=== PATIENT | female | born 1985 | race Caucasian/White ===

== ENCOUNTER 2024-06-23 12:41 | Inpatient (IN) | payer OTHER, SELFPAY ==
[2024-06-23 12:46] VITALS: BP 105/40; PULSE 55; RESP 20; TEMP 36.1; O2SAT 97; BMI 24.9
--- NOTE | 2024-06-23 12:49 | ED_ITS ---
HPI - Psych General Chief Complaint: General Medical Stated Complaint: requesting higher level care Time Seen by Provider: 06/23/24 17:28 Source: patient Mode of arrival: ambulatory Limitations: no limitations History of Present Illness ED Provider: DR. Maki HPI Narrative: 38-year-old female history of crack use and alcohol abuse came in from [facility] requesting to to help for rehab placement. Patient stated where she getting her detox is easy access to cocaine inside the facility. Related Data Allergies Allergy/AdvReac Type Severity Reaction Status Date / Time No Known Allergies Allergy Verified 06/23/24 12:47 Review of Systems 2 Review of Systems: All other systems are reviewed and are negative Constitutional: Reports as per HPI and Reports no additional constitutional complaints Eyes: Reports as per HPI and Reports no additional eye complaints Reports system reviewed and no additional complaints, except as documented Cardiovascular: Reports as per HPI and Reports no additional cardiovascular complaints Respiratory: Reports as per HPI and Reports no additional respiratory complaints Gastrointestinal: Reports as per HPI and Reports no additional gastrointestinal complaints Genitourinary: Reports no additional female genitourinary complaints Musculoskeletal: Reports no additional musculoskeletal complaints Skin/Breast: Reports system reviewed and no additional complaints, except as docu Psychiatric: Reports no additional psychiatric complaints Endocrine: Reports no additional endocrine complaints Hematologic/Lymphatic: Reports no additional hematologic/lymphatic complaints Allergic/Immunologic: Reports no additional allergic/immunologic complaints Reports system reviewed and no additional complaints, except as documented and Reports Abnormal speech present [facility] Social History Social History Advance Directives: No Advance Directives Information Provided: No Physical Exam 2 Vital Signs: Vital Signs: Last Vital Signs Temp 98.4 F 06/23/24 17:09 Pulse 52 06/23/24 18:12 Resp 18 06/23/24 18:12 BP 92/50 L 06/23/24 18:12 Pulse Ox 98 06/23/24 18:12 O2 Del Method Room Air 06/23/24 18:12 BMI result Body Mass Index 24.9 Vital signs have been reviewed and appear to be correct. Blood pressure lower than normal patient is a traumatic, no blurry vision, no headache, no dizziness.. Heart rate normal. Respiratory rate normal. Temperature normal. Oxygen saturation normal. Appearance: Alert. Oriented X3. No acute distress. Head: Normal external exam. Normocephalic. Atraumatic. No Scott signs noted. No raccoon eyes noted Eyes: PERRLA. EOMI. Conjunctiva and sclera normal. Eyelids normal. ENT: TM's Normal. Pharynx normal. Uvula midline. Moist mucous membranes. No trismus noted. No drooling noted. No muffled voice noted. Neck: Normal inspection. Neck supple. FROM. No adenopathy. Thyroid Normal. No meningeal signs. No neck mass noted. CVS: Normal heart rate and rhythm. Heart sound normal. No murmurs noted. Pulses normal throughout. Respiratory: No respiratory distress. Painless inspiration. Breath sounds normal. No wheezes/rales/rhonchi noted. Chest nontender. No accessory muscle usage noted or decreased air movement noted. Abdomen: Soft and nontender. Bowel sounds normal in all 4 quadrants. No distention noted. No organomegaly noted. No visible injury noted. Back: No CVA tenderness. Full range of motion noted. Skin: Skin warm and dry. Normal skin color. Normal skin turgor. No rashes/lesions/lacerations noted. Extremities: No lower extremity edema. Extremities exhibit normal range of motion. Extremities nontender. Neuro: Oriented X 3. Cranial nerve exam: II-XII are grossly intact No motor deficit. No sensory deficit. Reflexes normal. Patient Orientation: Person, Place, Time and Situation, okay hygiene and grooming. Fair eye contact, attentive, no tics or tremors. Level of Consciousness: Awake, Appropriate and Alert Patient Behavior: Appropriate, Guarded, Cooperative and Anxious Mood Description: Constricted, Blunted and Apprehensive Affect Description: Constricted, Blunted and Apprehensive Patient Cognition Impaired: No Ability to Follow Directions: Excellent Speech Pattern: Clear, Appropriate and Spontaneous Speech, nonpressured, spontaneous with regular rate and rhythm, normal volume and prosody. No dysarthria. Memory Description: Intact, Immediate Intact and Short Term Intact Hallucinations: None Delusions: Not Present Thought Process: Intact Thought Content: positive for Intact, positive for Logical, denies Suicidal Ideation and denies Homicidal Ideation. Depressive Symptoms: Not present. Judgement and Insight: Limited but adequate. Course Course Course Narrative: This is an RME: Additional HPI, ROS, PE not included below will be deferred to primary provider. RME assessment and note performed by: Jannet Cast PA-C This is a 24-ifjw-meh-female, with a history of opioid use disorder and alcohol use disorder who presents to the ER from [facility] requesting CSS placement. Patient states she has not happy with the care that she is receiving at [facility] because she is often times surrounded by cocaine which is triggering for her. She is currently on methadone, last dose this morning through [facility]. She is from the [facility]. Denies any SI or HI. No AH/VH. Reports last drink was in april. Last used cocaine last week, laced with fenantyl last week. Plan: Labs, UA, Addiction med consult. Reevaluation(s) Reevaluation #1: 38-year-old female history of substance abuse at [facility] for detox, patient is concern because the easy access of obtaining street drugs inside the facility and would like help for another detox program. Time: 17:00 Reevaluation #2: Extra medicine input is appreciated and recommended to keep the patient overnight for placement tomorrow. Time: 20:29 Medical Decision Making Differential Diagnosis Differential Diagnoses: The differential diagnosis associated with the presentation includes (Substance abuse, medical clearance, SI, HI.) Admission/Observation Consideration of admission/observation: Escalation of care including admission/observation considered Lab Data MDM Lab Attestation statement: I reviewed the patient's lab results. 06/23/24 13:20 06/23/24 13:20 Labs: Lab Results 06/23/24 Range/Units 13:20 WBC 5.3 (4.8-10.8) X10*3/uL RBC 4.68 (4.20-5.50) X10*6/uL Hgb 13.3 (12.0-16.0) g/dl Hct 40.3 (37.0-47.0) % MCV 86.1 (80.0-98.0) fL MCH 28.4 (27.0-33.0) pg MCHC 33.0 (31.0-35.0) g/dl RDW 12.3 (11.0-16.0) % Plt Count 319 (160-400) X10*3/uL MPV 10.0 (9.4-12.3) fL Immature Gran % (Auto) 0.4 (0.0-0.4) % Neut % (Auto) 47.8 (45-73) % Lymph % (Auto) 40.8 H (20-40) % [place] % (Auto) 7.6 (2-11) % Eos % (Auto) 2.3 (0-4) % Baso % (Auto) 1.1 (0-2) % Lymph # (Auto) 2.1 (1.2-4.9) X10*3/uL [place] # (Auto) 0.4 (0.1-1.2) X10*3/uL Eos # (Auto) 0.1 (0.0-0.4) X10*3/uL Baso # (Auto) 0.1 (0.0-0.2) X10*3/uL Abs Immat Gran (auto) 0.02 (0.00-0.03) X10*3/uL Absolute Neuts (auto) 2.5 (2.0-8.3) x10*3/uL Absolute Nucleated RBC 0.000 (0.0-0.012) X10*3/uL Nucleated RBC % (auto) 0.0 (0.0-0.2) /100WBC Sodium 137 (135-145) mmol/L Potassium 4.9 (3.3-5.1) mmol/L Chloride 101 (96-108) mmol/L Carbon Dioxide 28 (22-29) mmol/L Anion Gap 13 (12-20) BUN 10 (9-16) mg/dL Creatinine 0.89 (0.5-1.4) mg/dL Estim Creat Clear Calc 80.0 Estimated GFR > 60 Random Glucose 94 (60-115) mg/dL Calcium 9.4 (8.4-10.2) mg/dL Total Bilirubin 1.1 H (0.0-1.0) mg/dL Direct Bilirubin 0.3 (0.0-0.5) mg/dL AST 71 H (5-31) U/L ALT 103 H (0-31) U/L Alkaline Phosphatase 94 (39-117) U/L Total Protein 7.7 (6.5-8.0) g/dL Albumin 4.3 (3.5-5.0) g/dL Beta HCG, Quant < 2 mIU/mL Urine Opiates Screen Not Detected (Not Detect) Ur Buprenorphine Scrn Not Detected (Not Detect) ng/mL Ur Oxycodone Screen Not Detected (Not Detect) ng/mL Urine Methadone Screen Positive H (Not Detect) ng/mL Urine Fentanyl Screen Not Detected (Not Detect) Ur Barbiturates Screen Not Detected (Not Detect) Ur Phencyclidine Scrn Not Detected (Not Detect) Ur Amphetamines Screen Not Detected (Not Detect) U Benzodiazepines Scrn POSITIVE H (Not Detect) Urine Cocaine Screen POSITIVE H (Not Detect) U Marijuana (THC) Screen Not Detected (Not Detect) Ethyl Alcohol < 10 mg/dL Discharge Plan Discharge Clinical Impression: Substance abuse Patient Disposition: Still a Patient Print Language: Namibian
[2024-06-23 13:26] LABS: MANUAL DIFF FLAG NO
[2024-06-23 13:28] LABS: Basophils Absolute Auto 0.1 X10*3/uL (0.0-0.2); Basophils Percent Auto 1.1 % (0-2); Eosinophils Absolute Auto 0.1 X10*3/uL (0.0-0.4); Eosinophils Percent Auto 2.3 % (0-4); Hematocrit 40.3 % (37.0-47.0); Hemoglobin 13.3 g/dl (12.0-16.0); Imm Gran Abs Auto 0.02 X10*3/uL (0.00-0.03); Imm Gran Pct Auto 0.4 % (0.0-0.4); Lymphocytes Absolute Auto 2.1 X10*3/uL (1.2-4.9); Lymphocytes Percent Auto 40.8 % (20-40); Mean Corpuscular Hemoglobin 28.4 pg (27.0-33.0); Mean Corpuscular Volume 86.1 fL (80.0-98.0); Monocytes Absolute Auto 0.4 X10*3/uL (0.1-1.2); Monocytes Percent Auto 7.6 % (2-11); Neutrophils Absolute Auto 2.5 x10*3/uL (2.0-8.3); Neutrophils Percent Auto 47.8 % (45-73); Platelet Count 319 X10*3/uL (160-400); Red Blood Count 4.68 X10*6/uL (4.20-5.50); Red Cell Distribution Width 12.3 % (11.0-16.0); White Blood Count 5.3 X10*3/uL (4.8-10.8)
[2024-06-23 13:41] LABS: Amphetamine Screen Urine Not Detected (Not Detect); Barbiturates, Urine Not Detected (Not Detect); Benzodiazepines Screen Urine POSITIVE (Not Detect); Buprenorphine Scr Not Detected (Not Detect); Cannabinoid Screen Urine Not Detected (Not Detect); Cocaine Screen Urine POSITIVE (Not Detect); Fentanyl, urine Not Detected (Not Detect); Methadone Screen, Urine Positive (Not Detect); Opiate Screen Urine Not Detected (Not Detect); Oxycodone Screen Urine Not Detected (Not Detect); Phencyclidine Screen Urine Not Detected (Not Detect)
[2024-06-23 13:52] LABS: Ethanol < 10 mg/dL
[2024-06-23 14:00] LABS: Alanine Aminotransferase 103 U/L (0-31); Albumin Level 4.3 g/dL (3.5-5.0); Alkaline Phosphatase 94 U/L (39-117); Anion Gap 13 (12-20); Aspartate Amino Transferase 71 U/L (5-31); Bilirubin Direct 0.3 mg/dL (0.0-0.5); Bilirubin Total 1.1 mg/dL (0.0-1.0); Blood Urea Nitrogen 10 mg/dL (9-16); Calcium 9.4 mg/dL (8.4-10.2); Carbon Dioxide 28 mmol/L (22-29); Chloride 101 mmol/L (96-108); Estimated Glomerular Filt Rate > 60; Glucose Random 94 mg/dL (60-115); Potassium 4.9 mmol/L (3.3-5.1); Sodium 137 mmol/L (135-145); Total Protein 7.7 g/dL (6.5-8.0)
[2024-06-23 14:02] LABS: HCG Quantitative < 2 mIU/mL
[2024-06-23 17:09] VITALS: BP 88/51; PULSE 57; RESP 16; TEMP 36.9; O2SAT 100
--- NOTE | 2024-06-23 17:19 | PC.NURSE ---
pt denies SI/HI. They are not here for crisis. They would like help in placement to a CSS
--- NOTE | 2024-06-23 18:11 | PC.NURSE ---
after discussion with charge nurse and security pt's belongings were not secured at this time due to the pt not being here for crisis, not SI or HI, no section
[2024-06-23 18:12] VITALS: BP 92/50; PULSE 52; RESP 18; O2SAT 98
--- NOTE | 2024-06-23 18:34 | MHC.CM.ED ---
Pt is not a CM consult. Appropriate for CARE team and recovery support services. Provider aware. CARE team aware
--- NOTE | 2024-06-23 20:20 | MHC.CARE ---
CARE TEAM met with patient in RP01. She is not known to [facility]. She reported a history of alcohol use and disclosed she was admitted to [facility] on 05/22/24. She discussed since being at [facility], she has been smoking cocaine. She reported she left [facility] with hopes to be readmitted to [facility]. CARE TEAM called [phone] ext [phone] and message was left. Patient disclosed she was administered 75mg of Methadone prior to leaving [facility]. She was observed dosing in and out of sleep. ?She does not appear to be an immediate risk to self or others. Patient denied suicidal and homicidal ideation, plan, or intent. Patient would most benefit from meeting with Recovery Team.
--- NOTE | 2024-06-23 21:04 | PC.NURSE ---
spoke to CARE team who decided it would be best for pt to stay overnight - at that time pt changed over with security, belongings secured, and brought to POD
--- NOTE | 2024-06-23 22:04 | PC.NURSE ---
t/w completed med count once it was discovered controlled meds were present, according to list from xim[facility], shes left with 13 alprazolam and now 9 are present. considering patients BP, i dont foresee comfortably administering medications to client tonight. will continue to monitor VS.
--- NOTE | 2024-06-23 23:42 | PC.NURSE ---
patients belongings now in behavior pod closet, too many for other location
[2024-06-24] VITALS (10 sets, daily range): BP systolic 80–108; BP diastolic 45–62; PULSE 50–83; RESP 16–18; TEMP 36.6–37.2; O2SAT 94–98
--- NOTE | 2024-06-24 03:22 | PC.NURSE ---
client asked about medications, t/w informed client id be interested in a more normal BP and encouraged fluids, also let client know that methadone verfiication would be after 0600, and administration should be after 0800. patient made statements about not missing benzos, however patient has no evidence of withdrawal presently (snacking and has been resting).
--- NOTE | 2024-06-24 06:36 | HE.PHANOTE ---
Re MEthadone Received confirmation form from nursing. Patient receives 75mg from [facility]. Last dose was 06/23/24.
--- NOTE | 2024-06-24 09:40 | PC.NURSE ---
pt walked up to the nurses station to receive her methadone, this RN decided to re-check the pt's bp because it has been running low, bp was low again, decided to perform orthostatic vs and pt was positive with some dizziness upon standing but resolved quickly, held the methadone for now and reached out to the provider, verbal order from the provider to give the methadone after an ekg was performed and to push oral fluids which the pt has been drinking fluids and will continue to do so
--- NOTE | 2024-06-24 09:48 | ECG_ITS ---
Test Reason : BRADYCARDIA Blood Pressure : / mmHG Vent. Rate : 052 BPM Atrial Rate : 052 BPM P-R Int : 172 ms QRS Dur : 080 ms QT Int : 480 ms P-R-T Axes : 034 072 070 degrees QTc Int : 446 ms Poor data quality Sinus bradycardia Otherwise normal ECG No previous ECGs available Referred By: Romel Ornelas Electronically Signed By:QUINTEN BIGGS MD
[2024-06-24] MEDS: methADONE HCl 20 MG/2 ML ORAL.CONC 75 MG PO (09:52)
--- NOTE | 2024-06-24 10:10 | PC.NURSE ---
recover at bedside speaking with the patient
--- NOTE | 2024-06-24 10:31 | PHA.MEDREC ---
Pharmacy Consult ? Medication Reconciliation Pharmacy has reviewed the medication reconciliation done by nursing staff Also called [facility] on [facility] in [place] [phone] and spoke to Estrella to confirm list. Changed buppropion SR to XL 150mg after speaking to [facility].
--- NOTE | 2024-06-24 10:38 | PC.NURSE ---
will be holding the wellbutrin and Xanax for now do to the pt's low bp
--- NOTE | 2024-06-24 10:47 | MHC.RECOVRN ---
Met with pt in BH3 to follow up after request for CSS placement. Pt awake, alert, easily engages in conversation. Pt is not interested in ATS after cocaine use. Pt is interested in returning to [facility]. Pt aware she is unable to board in the ED waiting for CSS but a referral will be placed. Referral sent to [email or web address] and voicemail left with staff requesting information on bed availability and likelihood of patient's acceptance. Will continue to follow.
[2024-06-24] MEDS: ALPRAZolam 0.5 MG TABLET 1 MG PO ×2 (11:34→20:41)
[2024-06-24] MEDS: Docusate Sodium 100 MG CAPSULE PO ×2 (11:34→20:41)
[2024-06-24] MEDS: buPROPion HCl XL 150 MG TAB.ER.24H PO (11:34)
--- NOTE | 2024-06-24 11:44 | MHC.RECOVRN ---
Attempted to reach [facility] regarding CSS availability, again no answer and left a message.
--- NOTE | 2024-06-24 12:50 | PC.NURSE ---
recovery speaking to the patient again
--- NOTE | 2024-06-24 13:23 | PC.NURSE ---
pt is currently asleep respirations even and unlabored,
--- NOTE | 2024-06-24 13:35 | PC.NURSE ---
while this rn was on brake pt expressed si statements to recovery team
--- NOTE | 2024-06-24 13:56 | MHC.CARE ---
Pt seen by CARE team and refereed to hospital recovery team for detox.
--- NOTE | 2024-06-24 14:24 | MHC.RECOVRN ---
Met with pt to follow up regarding CSS referral and lack of response from [facility]. Educated pt that she is unable to stay in the ED to wait for CSS bed. Pt then reported SI with a plan to overdose. Pt reports she has 2 children, 7 years old and 6 months old, and has been having increased depression since DCF involvement and not being able to have her children. Reports 7 year old is with their father and 6 month old are with her aunt. Pt denies other questions/concerns for t/w. Discussed with pod RN, CARE Team, and ED provider. Plan for CARE Team consult.
--- NOTE | 2024-06-24 17:17 | PC.NURSE ---
report given to gemma sumner at M3
--- NOTE | 2024-06-24 19:13 | PC.ADMIT ---
Keena is a 38 y/o uruguayan speaking female who was admitted to M3 at 1735 from [facility] on a CV for treatment of Bipolar d/o with SI. Pt was at the [facility] program and says she started using crack because of other pts in the program. Pt wants to step down to a CSS for help with recovery. Pt is A&O x4 , she is calm and cooperative. Pts mood is depressed with a congruent affect. Pt denies AH/VH/SI/HI. Pts thought process linear. Pt?ideation, plan or intent to harm self or others. She reports her appetite is good. She reports 4-5 hours of sleep which is disturbed by racing thoughts. Pt has a history of ETOH abuse, reporting 9 months of sobriety and then drank for two weeks. Pts last drink was 2 months ago. Pt reports restraining daily crack use? over the past month at the [facility] Pt has no acute medical concerns or complaints. Her goal for the admission is to get into a CSS from this hospitalization. Pt placed on 15 minute safety checks.
[2024-06-24] MEDS: traZODone HCL 50 MG TABLET PO (20:41)
[2024-06-24] MEDS: hydrOXYzine HCL 25 MG TABLET PO (20:41)
[2024-06-25 07:41] VITALS: BP 110/58; PULSE 77; RESP 16; TEMP 37; O2SAT 96
[2024-06-25] MEDS: methADONE HCl 20 MG/2 ML ORAL.CONC 75 MG PO (07:46)
[2024-06-25] MEDS: ALPRAZolam 0.5 MG TABLET 1 MG PO ×2 (08:27→16:48)
[2024-06-25] MEDS: Docusate Sodium 100 MG CAPSULE PO ×2 (08:27→21:00)
[2024-06-25] MEDS: buPROPion HCl XL 150 MG TAB.ER.24H PO (08:28)
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
[2024-06-25 11:04] VITALS: BP 110/58; PULSE 77; RESP 18; TEMP 37; O2SAT 96
[2024-06-25 11:05] VITALS: BMI 29.2
[2024-06-25 12:36] VITALS: BP 109/67
[2024-06-25] MEDS: cloNIDine HCL 0.1 MG TABLET PO ×2 (12:36→20:59)
[2024-06-25] MEDS: Ibuprofen 600 MG TABLET PO ×2 (12:36→21:00)
[2024-06-25] MEDS: OXcarbazepine 150 MG TABLET PO ×2 (14:40→21:00)
[2024-06-25] MEDS: Sertraline HCL 25 MG TABLET PO (14:40)
[2024-06-25 20:00] VITALS: BP 105/73; PULSE 68; RESP 16; TEMP 36.8; O2SAT 95
[2024-06-25] MEDS: traZODone HCL 50 MG TABLET PO (20:59)
[2024-06-25] MEDS: hydrOXYzine HCL 25 MG TABLET PO (21:00)
[2024-06-26 08:16] VITALS: BP 115/69; PULSE 64; RESP 18; TEMP 36.9; O2SAT 98
[2024-06-26] MEDS: methADONE HCl 20 MG/2 ML ORAL.CONC 75 MG PO (08:19)
[2024-06-26] MEDS: ALPRAZolam 0.5 MG TABLET 1 MG PO ×2 (08:51→15:26)
[2024-06-26] MEDS: OXcarbazepine 150 MG TABLET PO (08:51)
[2024-06-26] MEDS: Sertraline HCL 25 MG TABLET PO (08:51)
[2024-06-26] MEDS: buPROPion HCl XL 150 MG TAB.ER.24H PO (08:51)
[2024-06-26] MEDS: Docusate Sodium 100 MG CAPSULE PO ×2 (08:52→20:10)
--- NOTE | 2024-06-26 09:44 | PC.NURSE ---
Keena declined flu shot on 06/26/24
[2024-06-26 10:40] VITALS: BP 125/69
[2024-06-26] MEDS: cloNIDine HCL 0.1 MG TABLET PO ×2 (10:42→20:09)
--- NOTE | 2024-06-26 12:36 | PM.EVENT ---
Event Note Date of Service: 06/26/24 Event Note: Patient is a 38-year-old female admitted to M3 psych unit with hospitalist consult for area sternal erythema. Patient reports she noticed 2 days ago she had a white head in the area and popped it. Area since then has grown erythematous and occasionally oozing a small amount of white pus. Has a remote history of IVDU, sober for the past 8 years. Physical exam reveals warm and erythematous area right sternum, see picture below. No fluctuance or induration noted. Will treat with doxycycline 100 mg b.i.d. x5 days. Time Spent With Patient Time: Total time managing care of this patient today ____ minutes.
[2024-06-26] MEDS: chlorproMAZINE HCl 25 MG TABLET 50 MG PO ×2 (13:29→18:17)
[2024-06-26] MEDS: Doxycycline Monohydrate 100 MG CAPSULE PO ×2 (13:47→20:10)
[2024-06-26] MEDS: OXcarbazepine 300 MG TABLET PO ×2 (15:26→20:10)
--- NOTE | 2024-06-26 19:14 | P.PNPSI_ITS ---
Subjective Subjective Date of Service: 06/26/24 Reason For Visit: SI Interim History: woke up a lot overnight. c/o anxiety, asking about klonopin; per script review, pt has not had any klonopin script since october of 2023. agreeable to increase trileptal to 300 TID for now. also asking about adding gabapentin, which she reports has been helpful for her in the past. also willing to increase zoloft to 50 mg on saturday, potentially. c/o anger as well, agreeable to try thorazine PRN agitation. Mental Status Exam Mental Status Exam Narrative: adequately dressed and groomed. cooperative. no PMA/PMR. speech nml rate, amount, loudness, tone, latency. thoughts linear and logical without delusions or paranoia. affect constricted, normo-intense, non-labile. mood Anxious. passive SI. no HI/AVH. Diagnostics Vital Signs (24Hr): Vital Signs - 24 hr 06/25/24 20:00 06/26/24 08:16 06/26/24 10:40 Temperature 98.3 F 98.5 F Pulse Rate 68 64 Respiratory Rate 16 18 Blood Pressure 105/73 115/69 125/69 Pulse Oximetry 95 98 Oxygen Delivery Method Room Air BMI result Body Mass Index 29.2 Labs 06/23/24 13:20 06/23/24 13:20 Medications Medications Current Medications Acetaminophen (Acetaminophen 325 Mg Tablet) 650 mg PO Q6H PRN PRN Reason: Headache/Pain Mild Scale (1-3) Al Hydroxide/Mg Hydroxide (Magnesium Hydrox/Alum Hydrox 30 Ml Oral.Susp) 30 ml PO Q6H PRN PRN Reason: Heartburn/Nausea Alprazolam (Alprazolam 0.5 Mg Tablet) 1 mg PO BID PRN PRN Reason: panic attack Last Admin: 06/26/24 15:26 Dose: 1 mg Bupropion HCl (Bupropion Hcl Xl 150 Mg Tab.Er.24h) 150 mg PO DAILY JULIO CÉSAR Last Admin: 06/26/24 08:51 Dose: 150 mg Chlorpromazine HCl (Chlorpromazine Hcl 25 Mg Tablet) 50 mg PO QID PRN PRN Reason: severe anger Last Admin: 06/26/24 18:17 Dose: 50 mg Clonidine HCl (Clonidine Hcl 0.1 Mg Tablet) 0.1 mg PO TID PRN; Protocol PRN Reason: Anxiety Last Admin: 06/26/24 10:42 Dose: 0.1 mg Docusate Sodium (Docusate Sodium 100 Mg Capsule) 100 mg PO BID COUNTS [facility]CLUDE 234 BEDS AT THE [facility] Last Admin: 06/26/24 08:52 Dose: 100 mg Doxycycline Monohydrate (Doxycycline Monohydrate 100 Mg Capsule) 100 mg PO Q12H COUNTS INCLUDE 234 BEDS AT THE [facility] Stop: 07/01/24 20:59 Hydroxyzine HCl (Hydroxyzine Hcl 25 Mg Tablet) 25 mg PO Q6H PRN PRN Reason: Anxiety Last Admin: 06/25/24 21:00 Dose: 25 mg Ibuprofen (Ibuprofen 600 Mg Tablet) 600 mg PO TID PRN PRN Reason: Breakthrough Pain, Mild Last Admin: 06/25/24 21:00 Dose: 600 mg Magnesium Hydroxide (Milk Of Magnesia 30 Ml Oral.Susp) 30 ml PO DAILY PRN PRN Reason: Constipation Methadone HCl (Methadone Hcl 20 Mg/2 Ml Oral.Conc) 75 mg PO DAILY COUNTS INCLUDE 234 BEDS AT THE [facility] Last Admin: 06/26/24 08:19 Dose: 75 mg Nicotine Polacrilex (Nicotine Polacrilex 2 Mg Gum) 4 mg BUCCAL Q3H PRN PRN Reason: Nicotine Cravings Oxcarbazepine (Oxcarbazepine 300 Mg Tablet) 300 mg PO TID COUNTS INCLUDE 234 BEDS AT THE [facility] Last Admin: 06/26/24 15:26 Dose: 300 mg Sertraline HCl (Sertraline Hcl 25 Mg Tablet) 25 mg PO DAILY COUNTS INCLUDE 234 BEDS AT THE [facility] Last Admin: 06/26/24 08:51 Dose: 25 mg Trazodone HCl (Trazodone Hcl 100 Mg Tablet) 100 mg PO BEDTIME COUNTS INCLUDE 234 BEDS AT THE [facility] Allergies Allergies Allergy/AdvReac Type Severity Reaction Status Date / Time No Known Allergies Allergy Verified 06/23/24 12:47 Assessment & Plan Assessment & Plan (1) Opioid use disorder, severe, on maintenance therapy: Status: Acute Code(s): F11.20 - Opioid dependence, uncomplicated (2) Cocaine use disorder: Status: Acute Code(s): F14.10 - Cocaine abuse, uncomplicated (3) Alcohol use disorder: Status: Acute Code(s): F10.90 - Alcohol use, unspecified, uncomplicated (4) Unspecified mood [affective] disorder: Status: Acute Code(s): F39 - Unspecified mood [affective] disorder Plan 06/25: restart trileptal 150 TID mood mood stabilization. start zoloft 25 for anxiety/panic/depression. 06/26: c/o anxiety and irritability. agreeable to increase trileptal to 300 TID. increase zoloft to 50 mg daily on saturday. no evidence for any recent klonopin script; do not prescribe. add thorazine PRN anger. T/C adding scheduled gabapentin over w/e if pt tolerates trileptal dose increase and continues to c/o anxiety. Reason for continued inpatient stay Substantial Risk for: harm to self, inability to function and rapid decompensation Time Spent With Patient Time: Total time managing care of this patient today __25__ minutes.
[2024-06-26 20:00] VITALS: BP 143/62; PULSE 67; RESP 18; TEMP 36.8; O2SAT 99
[2024-06-26] MEDS: hydrOXYzine HCL 25 MG TABLET PO (20:10)
[2024-06-26] MEDS: Ibuprofen 600 MG TABLET PO (20:10)
[2024-06-26] MEDS: traZODone HCL 100 MG TABLET PO (20:10)
[2024-06-27 07:50] VITALS: BP 107/53; PULSE 61; RESP 16; TEMP 36.8; O2SAT 95
[2024-06-27] MEDS: methADONE HCl 20 MG/2 ML ORAL.CONC 75 MG PO (08:02)
[2024-06-27] MEDS: chlorproMAZINE HCl 25 MG TABLET 50 MG PO (09:31)
[2024-06-27] MEDS: Acetaminophen 325 MG TABLET 650 MG PO (09:31)
[2024-06-27] MEDS: OXcarbazepine 300 MG TABLET PO ×3 (09:32→21:20)
[2024-06-27] MEDS: Docusate Sodium 100 MG CAPSULE PO ×2 (09:32→21:21)
[2024-06-27] MEDS: ALPRAZolam 0.5 MG TABLET 1 MG PO (09:32)
[2024-06-27] MEDS: Doxycycline Monohydrate 100 MG CAPSULE PO ×2 (09:32→21:20)
[2024-06-27] MEDS: Sertraline HCL 25 MG TABLET PO (09:32)
[2024-06-27] MEDS: buPROPion HCl XL 150 MG TAB.ER.24H PO (09:32)
--- NOTE | 2024-06-27 10:16 | HO.PSYCHPN ---
Subjective Subjective Date of Service: 06/27/24 Reason For Visit: SI Interim History: overall reports feeling irritable, anxious, poor sleep. Depressed. Thoughts of that. No active SI. No psychosis. Overall we discussed utilizing gabapentin for anxiety and also increasing Thorazine as needed dosing for agitation for/anger Medication Compliance: Yes Side effects from medications: No Attending Groups: Yes Review of Systems Acute medical concerns: No Review of Systems Review of Systems unremarkable Mental Status Exam Mental Status Exam Narrative: adequately dressed and groomed. cooperative. no PMA/PMR. speech nml rate, amount, loudness, tone, latency. thoughts linear and logical without delusions or paranoia. mood Anxious . affect constricted, normo-intense, non-labile. passive SI. no HI/AVH. Diagnostics Vital Signs (24Hr): Vital Signs - 24 hr 06/26/24 10:40 06/26/24 20:00 06/27/24 07:50 Temperature 98.3 F 98.2 F Pulse Rate 67 61 Respiratory Rate 18 16 Blood Pressure 125/69 143/62 H 107/53 L Pulse Oximetry 99 95 Oxygen Delivery Method Room Air Room Air BMI result Body Mass Index 29.2 Labs 06/23/24 13:20 06/23/24 13:20 Medications Medications Current Medications Acetaminophen (Acetaminophen 325 Mg Tablet) 650 mg PO Q6H PRN PRN Reason: Headache/Pain Mild Scale (1-3) Last Admin: 06/27/24 09:31 Dose: 650 mg Al Hydroxide/Mg Hydroxide (Magnesium Hydrox/Alum Hydrox 30 Ml Oral.Susp) 30 ml PO Q6H PRN PRN Reason: Heartburn/Nausea Alprazolam (Alprazolam 0.5 Mg Tablet) 1 mg PO BID PRN PRN Reason: panic attack Last Admin: 06/27/24 09:32 Dose: 1 mg Bupropion HCl (Bupropion Hcl Xl 150 Mg Tab.Er.24h) 150 mg PO DAILY JULIO CÉSAR Last Admin: 06/27/24 09:32 Dose: 150 mg Chlorpromazine HCl (Chlorpromazine Hcl 25 Mg Tablet) 50 mg PO QID PRN PRN Reason: severe anger Last Admin: 06/27/24 09:31 Dose: 50 mg Clonidine HCl (Clonidine Hcl 0.1 Mg Tablet) 0.1 mg PO TID PRN; Protocol PRN Reason: Anxiety Last Admin: 06/26/24 20:09 Dose: 0.1 mg Docusate Sodium (Docusate Sodium 100 Mg Capsule) 100 mg PO BID [facility] Last Admin: 06/27/24 09:32 Dose: 100 mg Doxycycline Monohydrate (Doxycycline Monohydrate 100 Mg Capsule) 100 mg PO Q12H [facility] Stop: 07/01/24 20:59 Last Admin: 06/27/24 09:32 Dose: 100 mg Hydroxyzine HCl (Hydroxyzine Hcl 25 Mg Tablet) 25 mg PO Q6H PRN PRN Reason: Anxiety Last Admin: 06/26/24 20:10 Dose: 25 mg Ibuprofen (Ibuprofen 600 Mg Tablet) 600 mg PO TID PRN PRN Reason: Breakthrough Pain, Mild Last Admin: 06/26/24 20:10 Dose: 600 mg Magnesium Hydroxide (Milk Of Magnesia 30 Ml Oral.Susp) 30 ml PO DAILY PRN PRN Reason: Constipation Methadone HCl (Methadone Hcl 20 Mg/2 Ml Oral.Conc) 75 mg PO DAILY [facility] Last Admin: 06/27/24 08:02 Dose: 75 mg Nicotine Polacrilex (Nicotine Polacrilex 2 Mg Gum) 4 mg BUCCAL Q3H PRN PRN Reason: Nicotine Cravings Oxcarbazepine (Oxcarbazepine 300 Mg Tablet) 300 mg PO TID [facility] Last Admin: 06/27/24 09:32 Dose: 300 mg Sertraline HCl (Sertraline Hcl 25 Mg Tablet) 25 mg PO DAILY [facility] Last Admin: 06/27/24 09:32 Dose: 25 mg Trazodone HCl (Trazodone Hcl 100 Mg Tablet) 100 mg PO BEDTIME [facility] Last Admin: 06/26/24 20:10 Dose: 100 mg Allergies Allergies Allergy/AdvReac Type Severity Reaction Status Date / Time No Known Allergies Allergy Verified 06/23/24 12:47 Assessment & Plan Assessment & Plan (1) Opioid use disorder, severe, on maintenance therapy: Status: Acute Code(s): F11.20 - Opioid dependence, uncomplicated (2) Cocaine use disorder: Status: Acute Code(s): F14.10 - Cocaine abuse, uncomplicated (3) Alcohol use disorder: Status: Acute Code(s): F10.90 - Alcohol use, unspecified, uncomplicated (4) Unspecified mood [affective] disorder: Status: Acute Code(s): F39 - Unspecified mood [affective] disorder Plan 06/25: restart trileptal 150 TID mood mood stabilization. start zoloft 25 for anxiety/panic/depression. 06/26: c/o anxiety and irritability. agreeable to increase trileptal to 300 TID. increase zoloft to 50 mg daily on saturday. no evidence for any recent klonopin script; do not prescribe. add thorazine PRN anger. T/C adding scheduled gabapentin over w/e if pt tolerates trileptal dose increase and continues to c/o anxiety. 06/27/2024: Add gabapentin 300 mg 3 times per day. Increase Thorazine as needed dosing to 100 mg for agitation/anger Reason for continued inpatient stay Substantial Risk for: harm to self and rapid decompensation Time Spent With Patient Time: Total time managing care of this patient today ____ minutes.
[2024-06-27 12:58] VITALS: BP 127/61
[2024-06-27] MEDS: cloNIDine HCL 0.1 MG TABLET PO ×2 (12:58→17:39)
[2024-06-27] MEDS: chlorproMAZINE HCl 100 MG TABLET PO ×2 (12:58→17:39)
[2024-06-27] MEDS: Gabapentin 300 MG CAPSULE PO ×2 (15:52→21:19)
[2024-06-27] MEDS: Nicotine Polacrilex 2 MG GUM 4 MG BUCCAL (16:12)
[2024-06-27 17:35] VITALS: BP 111/60; PULSE 85; RESP 16
[2024-06-27 20:00] VITALS: BP 124/69; PULSE 68; RESP 16; TEMP 36.3; O2SAT 100
[2024-06-27] MEDS: Ibuprofen 600 MG TABLET PO (21:20)
[2024-06-27] MEDS: traZODone HCL 100 MG TABLET PO (21:21)
[2024-06-27] MEDS: hydrOXYzine HCL 25 MG TABLET PO (21:21)
[2024-06-28 07:35] VITALS: BP 105/59; PULSE 67; RESP 16; TEMP 36.9; O2SAT 95
[2024-06-28] MEDS: methADONE HCl 20 MG/2 ML ORAL.CONC 75 MG PO (08:11)
[2024-06-28] MEDS: Doxycycline Monohydrate 100 MG CAPSULE PO ×2 (09:05→22:43)
[2024-06-28] MEDS: buPROPion HCl XL 150 MG TAB.ER.24H PO (09:06)
[2024-06-28] MEDS: OXcarbazepine 300 MG TABLET PO ×3 (09:06→22:43)
[2024-06-28] MEDS: Docusate Sodium 100 MG CAPSULE PO ×2 (09:06→22:43)
[2024-06-28] MEDS: Sertraline HCL 25 MG TABLET PO (09:06)
[2024-06-28] MEDS: Gabapentin 300 MG CAPSULE PO ×3 (09:06→22:43)
[2024-06-28] MEDS: ALPRAZolam 0.5 MG TABLET 1 MG PO ×2 (09:10→21:34)
[2024-06-28] MEDS: hydrOXYzine HCL 25 MG TABLET PO ×2 (09:10→22:42)
--- NOTE | 2024-06-28 10:25 | HO.PSYCHPN ---
Subjective Subjective Date of Service: 06/28/24 Reason For Visit: SI Medical Problems Affecting Mental Status: No Interim History: Slept well. Nodding off at times. When awake, reports feeling irritable, anxious and depressed. No active SI. No psychosis. Wanted to try zyprexa instead of Thorazine for agitation. Later wanted to change back to Thorazine (lowered to 75mg due to sedation at 100mg and report of no benefit at 50mg). Medication Compliance: Yes Side effects from medications: No Attending Groups: Intermittent Review of Systems Acute medical concerns: No Review of Systems Review of Systems unremarkable Mental Status Exam Mental Status Exam Narrative: adequately dressed and groomed. cooperative. no PMA/PMR. speech nml rate, amount, loudness, tone, latency. thoughts linear and logical without delusions or paranoia. mood Anxious . affect constricted, normo-intense, non-labile. passive SI. no HI/AVH. Diagnostics Vital Signs (24Hr): Vital Signs - 24 hr 06/27/24 12:58 06/27/24 17:35 06/27/24 20:00 Temperature 97.3 F Pulse Rate 85 68 Respiratory Rate 16 16 Blood Pressure 127/61 111/60 124/69 Pulse Oximetry 100 Oxygen Delivery Method Room Air 06/28/24 07:35 Temperature 98.5 F Pulse Rate 67 Respiratory Rate 16 Blood Pressure 105/59 L Pulse Oximetry 95 Oxygen Delivery Method Room Air BMI result Body Mass Index 29.2 Labs 06/23/24 13:20 06/23/24 13:20 Medications Medications Current Medications Acetaminophen (Acetaminophen 325 Mg Tablet) 650 mg PO Q6H PRN PRN Reason: Headache/Pain Mild Scale (1-3) Last Admin: 06/27/24 09:31 Dose: 650 mg Al Hydroxide/Mg Hydroxide (Magnesium Hydrox/Alum Hydrox 30 Ml Oral.Susp) 30 ml PO Q6H PRN PRN Reason: Heartburn/Nausea Alprazolam (Alprazolam 0.5 Mg Tablet) 1 mg PO BID PRN PRN Reason: panic attack Last Admin: 06/28/24 09:10 Dose: 1 mg Bupropion HCl (Bupropion Hcl Xl 150 Mg Tab.Er.24h) 150 mg PO DAILY JULIO CÉSAR Last Admin: 06/28/24 09:06 Dose: 150 mg Chlorpromazine HCl (Chlorpromazine Hcl 100 Mg Tablet) 100 mg PO QID PRN PRN Reason: severe anger Last Admin: 06/27/24 17:39 Dose: 100 mg Clonidine HCl (Clonidine Hcl 0.1 Mg Tablet) 0.1 mg PO TID PRN; Protocol PRN Reason: Anxiety Last Admin: 06/27/24 17:39 Dose: 0.1 mg Docusate Sodium (Docusate Sodium 100 Mg Capsule) 100 mg PO BID [facility] Last Admin: 06/28/24 09:06 Dose: 100 mg Doxycycline Monohydrate (Doxycycline Monohydrate 100 Mg Capsule) 100 mg PO Q12H [facility] Stop: 07/01/24 20:59 Last Admin: 06/28/24 09:05 Dose: 100 mg Gabapentin (Gabapentin 300 Mg Capsule) 300 mg PO TID [facility] Last Admin: 06/28/24 09:06 Dose: 300 mg Hydroxyzine HCl (Hydroxyzine Hcl 25 Mg Tablet) 25 mg PO Q6H PRN PRN Reason: Anxiety Last Admin: 06/28/24 09:10 Dose: 25 mg Ibuprofen (Ibuprofen 600 Mg Tablet) 600 mg PO TID PRN PRN Reason: Breakthrough Pain, Mild Last Admin: 06/27/24 21:20 Dose: 600 mg Magnesium Hydroxide (Milk Of Magnesia 30 Ml Oral.Susp) 30 ml PO DAILY PRN PRN Reason: Constipation Methadone HCl (Methadone Hcl 20 Mg/2 Ml Oral.Conc) 75 mg PO DAILY [facility] Last Admin: 06/28/24 08:11 Dose: 75 mg Nicotine Polacrilex (Nicotine Polacrilex 2 Mg Gum) 4 mg BUCCAL Q3H PRN PRN Reason: Nicotine Cravings Last Admin: 06/27/24 16:12 Dose: 4 mg Oxcarbazepine (Oxcarbazepine 300 Mg Tablet) 300 mg PO TID [facility] Last Admin: 06/28/24 09:06 Dose: 300 mg Sertraline HCl (Sertraline Hcl 25 Mg Tablet) 25 mg PO DAILY [facility] Last Admin: 06/28/24 09:06 Dose: 25 mg Trazodone HCl (Trazodone Hcl 100 Mg Tablet) 100 mg PO BEDTIME [facility] Last Admin: 06/27/24 21:21 Dose: 100 mg Allergies Allergies Allergy/AdvReac Type Severity Reaction Status Date / Time No Known Allergies Allergy Verified 06/23/24 12:47 Assessment & Plan Assessment & Plan (1) Opioid use disorder, severe, on maintenance therapy: Status: Acute Code(s): F11.20 - Opioid dependence, uncomplicated (2) Cocaine use disorder: Status: Acute Code(s): F14.10 - Cocaine abuse, uncomplicated (3) Alcohol use disorder: Status: Acute Code(s): F10.90 - Alcohol use, unspecified, uncomplicated (4) Unspecified mood [affective] disorder: Status: Acute Code(s): F39 - Unspecified mood [affective] disorder Plan 06/25: restart trileptal 150 TID mood mood stabilization. start zoloft 25 for anxiety/panic/depression. 06/26: c/o anxiety and irritability. agreeable to increase trileptal to 300 TID. increase zoloft to 50 mg daily on saturday. no evidence for any recent klonopin script; do not prescribe. add thorazine PRN anger. T/C adding scheduled gabapentin over w/e if pt tolerates trileptal dose increase and continues to c/o anxiety. 06/27/2024: Add gabapentin 300 mg 3 times per day. Increase Thorazine as needed dosing to 100 mg for agitation/anger 06/28: Wanted to try zyprexa instead of Thorazine for agitation. Later wanted to change back to Thorazine (lowered to 75mg due to sedation at 100mg and report of no benefit at 50mg). Reason for continued inpatient stay Substantial Risk for: rapid decompensation Time Spent With Patient Time: Total time managing care of this patient today ____ minutes.
[2024-06-28] MEDS: OLANZapine ODT 10 MG TAB.RAPDIS 5 MG TRANSLINGU (11:21)
[2024-06-28 12:59] VITALS: BP 120/58
[2024-06-28] MEDS: cloNIDine HCL 0.1 MG TABLET PO (12:59)
[2024-06-28] MEDS: chlorproMAZINE HCl 25 MG TABLET 75 MG PO ×2 (13:46→22:43)
--- NOTE | 2024-06-28 13:59 | PC.NURSE ---
This bond underwriter assessed pt.'s wound on sternum. Afebrile, warm to touch around wound, reddened skin around wound, and firm tissue underneath the wound. Wound consult placed. Pt requested a referral to addiction medicine, consult placed.
--- NOTE | 2024-06-28 17:17 | PC.NURSE ---
this telegraphic typewriter mechanic texted Dr Briceño via [employer], to ask permission to give this patient her 1500 medications at this time. Pt was sleeping at 1500, and RN did not want to wake. Dr Briceño gave permission to give the doses now.
[2024-06-28 19:22] VITALS: BP 135/67; PULSE 87; RESP 18; TEMP 36.7; O2SAT 94
[2024-06-28] MEDS: traZODone HCL 100 MG TABLET PO (22:43)
[2024-06-29 08:00] VITALS: BP 99/57; PULSE 102; RESP 16; TEMP 36.7; O2SAT 92
[2024-06-29] MEDS: methADONE HCl 20 MG/2 ML ORAL.CONC 75 MG PO (08:11)
[2024-06-29] MEDS: buPROPion HCl XL 150 MG TAB.ER.24H PO (08:17)
[2024-06-29] MEDS: Sertraline HCL 25 MG TABLET PO (08:17)
[2024-06-29] MEDS: OXcarbazepine 300 MG TABLET PO ×3 (08:17→20:16)
[2024-06-29] MEDS: Doxycycline Monohydrate 100 MG CAPSULE PO ×2 (08:17→20:16)
[2024-06-29] MEDS: Ibuprofen 600 MG TABLET PO ×2 (08:17→20:16)
[2024-06-29] MEDS: Docusate Sodium 100 MG CAPSULE PO ×2 (08:17→20:16)
[2024-06-29] MEDS: Gabapentin 300 MG CAPSULE PO ×3 (08:18→20:15)
[2024-06-29] MEDS: chlorproMAZINE HCl 25 MG TABLET 75 MG PO ×3 (08:18→18:23)
[2024-06-29 11:33] VITALS: BP 104/71; PULSE 110
[2024-06-29] MEDS: cloNIDine HCL 0.1 MG TABLET PO (11:34)
[2024-06-29] MEDS: ALPRAZolam 0.5 MG TABLET 1 MG PO ×2 (11:34→20:27)
[2024-06-29] MEDS: hydrOXYzine HCL 25 MG TABLET PO (12:45)
--- NOTE | 2024-06-29 14:34 | P.PNPSI_ITS ---
Subjective Subjective Date of Service: 06/29/24 Reason For Visit: SI Interim History: calm, cooperative, aware of plan to discharge . c/o anxiety out of control over weekend, as well as some irritability. tried zyprexa, which was inadequate, went back to thorazine at 75 mg each dose. feels anxiety is most relevant, agrees to increase zoloft to 50 mg and DC wellbutrin as potentially harmful. Mental Status Exam Mental Status Exam Narrative: adequately dressed and groomed. cooperative. no PMA/PMR. speech nml rate, amount, loudness, tone, latency. thoughts linear and logical without delusions or paranoia. mood Anxious . affect constricted, normo-intense, non-labile. no SI/HI/AVH expressed. Diagnostics Vital Signs (24Hr): Vital Signs - 24 hr 06/28/24 19:22 06/29/24 08:00 06/29/24 11:33 Temperature 98.0 F 98.1 F Pulse Rate 87 102 H 110 H Respiratory Rate 18 16 Blood Pressure 135/67 99/57 L 104/71 Pulse Oximetry 94 92 Oxygen Delivery Method Room Air Room Air BMI result Body Mass Index 29.2 Labs 06/23/24 13:20 06/23/24 13:20 Medications Medications Current Medications Acetaminophen (Acetaminophen 325 Mg Tablet) 650 mg PO Q6H PRN PRN Reason: Headache/Pain Mild Scale (1-3) Last Admin: 06/27/24 09:31 Dose: 650 mg Al Hydroxide/Mg Hydroxide (Magnesium Hydrox/Alum Hydrox 30 Ml Oral.Susp) 30 ml PO Q6H PRN PRN Reason: Heartburn/Nausea Alprazolam (Alprazolam 0.5 Mg Tablet) 1 mg PO BID PRN PRN Reason: panic attack Last Admin: 06/29/24 11:34 Dose: 1 mg Chlorpromazine HCl (Chlorpromazine Hcl 25 Mg Tablet) 75 mg PO Q6H PRN PRN Reason: severe agitation Last Admin: 06/29/24 14:00 Dose: 75 mg Chlorpromazine HCl (Chlorpromazine Hcl 100 Mg Tablet) 100 mg PO DAILY JULIO CÉSAR Clonidine HCl (Clonidine Hcl 0.1 Mg Tablet) 0.1 mg PO TID PRN; Protocol PRN Reason: Anxiety Last Admin: 06/29/24 11:34 Dose: 0.1 mg Docusate Sodium (Docusate Sodium 100 Mg Capsule) 100 mg PO BID [facility] Last Admin: 06/29/24 08:17 Dose: 100 mg Doxycycline Monohydrate (Doxycycline Monohydrate 100 Mg Capsule) 100 mg PO Q12H [facility] Stop: 07/01/24 20:59 Last Admin: 06/29/24 08:17 Dose: 100 mg Gabapentin (Gabapentin 300 Mg Capsule) 300 mg PO TID [facility] Last Admin: 06/29/24 08:18 Dose: 300 mg Hydroxyzine HCl (Hydroxyzine Hcl 25 Mg Tablet) 25 mg PO Q6H PRN PRN Reason: Anxiety Last Admin: 06/29/24 12:45 Dose: 25 mg Ibuprofen (Ibuprofen 600 Mg Tablet) 600 mg PO TID PRN PRN Reason: Breakthrough Pain, Mild Last Admin: 06/29/24 08:17 Dose: 600 mg Magnesium Hydroxide (Milk Of Magnesia 30 Ml Oral.Susp) 30 ml PO DAILY PRN PRN Reason: Constipation Methadone HCl (Methadone Hcl 20 Mg/2 Ml Oral.Conc) 75 mg PO DAILY [facility] Last Admin: 06/29/24 08:11 Dose: 75 mg Nicotine Polacrilex (Nicotine Polacrilex 2 Mg Gum) 4 mg BUCCAL Q3H PRN PRN Reason: Nicotine Cravings Last Admin: 06/27/24 16:12 Dose: 4 mg Oxcarbazepine (Oxcarbazepine 300 Mg Tablet) 300 mg PO TID [facility] Last Admin: 06/29/24 08:17 Dose: 300 mg Sertraline HCl (Sertraline Hcl 50 Mg Tablet) 50 mg PO DAILY [facility] Trazodone HCl (Trazodone Hcl 100 Mg Tablet) 100 mg PO BEDTIME [facility] Last Admin: 06/28/24 22:43 Dose: 100 mg Allergies Allergies Allergy/AdvReac Type Severity Reaction Status Date / Time No Known Allergies Allergy Verified 06/23/24 12:47 Assessment & Plan Assessment & Plan (1) Opioid use disorder, severe, on maintenance therapy: Status: Acute Code(s): F11.20 - Opioid dependence, uncomplicated (2) Cocaine use disorder: Status: Acute Code(s): F14.10 - Cocaine abuse, uncomplicated (3) Alcohol use disorder: Status: Acute Code(s): F10.90 - Alcohol use, unspecified, uncomplicated (4) Unspecified mood [affective] disorder: Status: Acute Code(s): F39 - Unspecified mood [affective] disorder Plan 06/25: restart trileptal 150 TID mood mood stabilization. start zoloft 25 for anxiety/panic/depression. 06/26: c/o anxiety and irritability. agreeable to increase trileptal to 300 TID. increase zoloft to 50 mg daily on saturday. no evidence for any recent klonopin script; do not prescribe. add thorazine PRN anger. T/C adding scheduled gabapentin over w/e if pt tolerates trileptal dose increase and continues to c/o anxiety. 06/27/2024: Add gabapentin 300 mg 3 times per day. Increase Thorazine as needed dosing to 100 mg for agitation/anger 06/28: Wanted to try zyprexa instead of Thorazine for agitation. Later wanted to change back to Thorazine (lowered to 75mg due to sedation at 100mg and report of no benefit at 50mg). 06/29: increase zoloft to 50 mg daily for anxiety. D/C wellbutrin as possibly exacerbating irritability/anxiety and as not helpful for anxiety. anxiety worst in the morning, schedule thorazine 100 at that time per pt request. planning to DC . Reason for continued inpatient stay Substantial Risk for: inability to function and rapid decompensation Time Spent With Patient Time: Total time managing care of this patient today __25__ minutes.
--- NOTE | 2024-06-29 16:38 | HO.WOUND ---
Wound Consult: Initial 38yr old?female admitted to the Behavioral [facility] Unit at [facility] [place] on 06/24/24 - See progress notes and H&P for detailed history.? Wound consult placed for Midline Chest wound.? Patient agreeable to assessment and photo documentation.? Patient reports the area was a pimple she popped and the area since evolved. She reports she has had MRSA abscess in the past that needed I&D. Hospitalist saw patient on 06/26/24 and made oral antibiotic recommendations. The photo review from that assessment appears as though the wound is worsening. TT to Dr. Alarcon with topical recommendations and concern for wound worsening. Provider to conceder surgery consult for abscess eval, hospitalist to assess for abscess and or imaging or ID consult. 06/26/24 06/29/24 Midline Chest Etiology: Unknown etiology ?? Measurements: 1cm x 0.6cm x 0.2cm Wound Bed: adherent thick yellow slough Drainage / Odor: creamy yellow Edges: ? well defined Maria Esther wound: ? increased erythema, firm induration noted no Fluctuance noted Pain: tenderness reported Goals of Treatment: ? Durafiber AG for moisture management and autolytic debridement Recommendations: 1. Midline Chest - Cleanse with NS, moist gauze, Pat dry. Apply skin prep to the periwound. Cover wound bed with Durafiber AG followed by dry gauze and tape. Change daily while inpatient. Monitor for wound worsening and notify provider if worsening s/s are observed. Re-consult wound care Nurse for wound deterioration or wound changes.
[2024-06-29 20:00] VITALS: BP 105/70; PULSE 79; RESP 16; TEMP 36.6; O2SAT 95
[2024-06-29] MEDS: traZODone HCL 100 MG TABLET PO (20:16)
[2024-06-29] MEDS: Nicotine Polacrilex 2 MG GUM 4 MG BUCCAL (20:59)
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
[2024-06-30 08:00] VITALS: BP 97/55; PULSE 95; RESP 16; TEMP 36.6; O2SAT 92
[2024-06-30] MEDS: methADONE HCl 20 MG/2 ML ORAL.CONC 75 MG PO (08:11)
[2024-06-30] MEDS: Acetaminophen 325 MG TABLET 650 MG PO ×2 (08:12→15:25)
[2024-06-30] MEDS: Ibuprofen 600 MG TABLET PO ×2 (08:13→15:11)
[2024-06-30] MEDS: Docusate Sodium 100 MG CAPSULE PO ×2 (09:14→21:22)
[2024-06-30] MEDS: chlorproMAZINE HCl 100 MG TABLET PO (09:14)
[2024-06-30] MEDS: OXcarbazepine 300 MG TABLET PO ×3 (09:14→21:23)
[2024-06-30] MEDS: Sertraline HCL 50 MG TABLET PO (09:14)
[2024-06-30] MEDS: Doxycycline Monohydrate 100 MG CAPSULE PO ×2 (09:14→21:23)
[2024-06-30] MEDS: Gabapentin 300 MG CAPSULE PO (09:14)
[2024-06-30] MEDS: chlorproMAZINE HCl 25 MG TABLET 75 MG PO ×2 (12:10→16:05)
--- NOTE | 2024-06-30 12:20 | P.EN_ITS ---
Event Note Date of Service: 06/29/24 Event Note: Addiction consult requested by patient supervisor beam department met with patient on 06/29--patient requesting referral to [facility] supervisor beam department encouraged patient to discuss referrals with SW as they help facilitate discharge planning Of note, patient was seen by supervisor beam department while in ED, prior to admission to unit Time Spent With Patient Time: Total time managing care of this patient today ____ minutes.
--- NOTE | 2024-06-30 12:20 | PM.EVENT ---
Event Note Date of Service: 06/29/24 Event Note: Addiction consult requested by patient operations architect met with patient on 06/29--patient requesting referral to [facility] operations architect encouraged patient to discuss referrals with SW as they help facilitate discharge planning Of note, patient was seen by operations architect while in ED, prior to admission to unit Time Spent With Patient Time: Total time managing care of this patient today ____ minutes.
[2024-06-30] MEDS: ALPRAZolam 0.5 MG TABLET 1 MG PO (12:35)
--- NOTE | 2024-06-30 12:36 | HO.PSYCHPN ---
Subjective Subjective Date of Service: 06/30/24 Reason For Visit: SI Interim History: reports things going reasonably well. awaiting surgery to return for I&D. c/o ongoing anxiety, asking for gabapentin to increase to 600 TID. discussed staff concern for sedation, will decrease dosing as needed if pt presents as sedated moving forward. per staff, 9/10 back pain. increased anxiety, PRNs not particularly helpful. social. dep 10, anx 6. sedated, napping in chair in day room. slept about 7 hours. Mental Status Exam Mental Status Exam Narrative: adequately dressed and groomed. cooperative. no PMA/PMR. speech nml rate, amount, loudness, tone, latency. thoughts linear and logical without delusions or paranoia. mood Anxious. affect constricted, normo-intense, non-labile. no SI/HI/AVH expressed. Diagnostics Vital Signs (24Hr): Vital Signs - 24 hr 06/29/24 20:00 06/30/24 08:00 Temperature 97.9 F 97.8 F Pulse Rate 79 95 Respiratory Rate 16 16 Blood Pressure 105/70 97/55 L Pulse Oximetry 95 92 Oxygen Delivery Method Room Air Room Air BMI result Body Mass Index 29.2 Labs 06/23/24 13:20 06/23/24 13:20 Medications Medications Current Medications Acetaminophen (Acetaminophen 325 Mg Tablet) 650 mg PO Q6H PRN PRN Reason: Headache/Pain Mild Scale (1-3) Last Admin: 06/30/24 08:12 Dose: 650 mg Al Hydroxide/Mg Hydroxide (Magnesium Hydrox/Alum Hydrox 30 Ml Oral.Susp) 30 ml PO Q6H PRN PRN Reason: Heartburn/Nausea Alprazolam (Alprazolam 0.5 Mg Tablet) 1 mg PO BID PRN PRN Reason: panic attack Last Admin: 06/30/24 12:35 Dose: 1 mg Chlorpromazine HCl (Chlorpromazine Hcl 100 Mg Tablet) 100 mg PO DAILY [facility] Last Admin: 06/30/24 09:14 Dose: 100 mg Chlorpromazine HCl (Chlorpromazine Hcl 25 Mg Tablet) 75 mg PO Q4H PRN PRN Reason: severe agitation Last Admin: 06/30/24 12:10 Dose: 75 mg Clonidine HCl (Clonidine Hcl 0.1 Mg Tablet) 0.1 mg PO TID PRN; Protocol PRN Reason: Anxiety Last Admin: 06/29/24 11:34 Dose: 0.1 mg Docusate Sodium (Docusate Sodium 100 Mg Capsule) 100 mg PO BID [facility] Last Admin: 06/30/24 09:14 Dose: 100 mg Doxycycline Monohydrate (Doxycycline Monohydrate 100 Mg Capsule) 100 mg PO Q12H [facility] Stop: 07/01/24 20:59 Last Admin: 06/30/24 09:14 Dose: 100 mg Gabapentin (Gabapentin 300 Mg Capsule) 600 mg PO TID [facility] Hydroxyzine HCl (Hydroxyzine Hcl 25 Mg Tablet) 25 mg PO Q6H PRN PRN Reason: Anxiety Last Admin: 06/29/24 12:45 Dose: 25 mg Ibuprofen (Ibuprofen 600 Mg Tablet) 600 mg PO TID PRN PRN Reason: Breakthrough Pain, Mild Last Admin: 06/30/24 08:13 Dose: 600 mg Magnesium Hydroxide (Milk Of Magnesia 30 Ml Oral.Susp) 30 ml PO DAILY PRN PRN Reason: Constipation Methadone HCl (Methadone Hcl 20 Mg/2 Ml Oral.Conc) 75 mg PO DAILY [facility] Last Admin: 06/30/24 08:11 Dose: 75 mg Nicotine Polacrilex (Nicotine Polacrilex 2 Mg Gum) 4 mg BUCCAL Q3H PRN PRN Reason: Nicotine Cravings Last Admin: 06/29/24 20:59 Dose: 4 mg Oxcarbazepine (Oxcarbazepine 300 Mg Tablet) 300 mg PO TID [facility] Last Admin: 06/30/24 09:14 Dose: 300 mg Sertraline HCl (Sertraline Hcl 50 Mg Tablet) 50 mg PO DAILY [facility] Last Admin: 06/30/24 09:14 Dose: 50 mg Trazodone HCl (Trazodone Hcl 100 Mg Tablet) 100 mg PO BEDTIME [facility] Last Admin: 06/29/24 20:16 Dose: 100 mg Allergies Allergies Allergy/AdvReac Type Severity Reaction Status Date / Time No Known Allergies Allergy Verified 06/23/24 12:47 Assessment & Plan Assessment & Plan (1) Chest wall abscess: Status: Acute Code(s): L02.213 - Cutaneous abscess of chest wall Assessment and Plan: This will need incision and drainage. Unfortunately the procedure room does not have any such instrumentation. I will have to retrieve I&D care from ER and then return for I&D. (2) Alcohol use disorder: Status: Acute Code(s): F10.90 - Alcohol use, unspecified, uncomplicated (3) Cocaine use disorder: Status: Acute Code(s): F14.10 - Cocaine abuse, uncomplicated (4) Opioid use disorder, severe, on maintenance therapy: Status: Acute Code(s): F11.20 - Opioid dependence, uncomplicated (5) Unspecified mood [affective] disorder: Status: Acute Code(s): F39 - Unspecified mood [affective] disorder Plan 06/25: restart trileptal 150 TID mood mood stabilization. start zoloft 25 for anxiety/panic/depression. 06/26: c/o anxiety and irritability. agreeable to increase trileptal to 300 TID. increase zoloft to 50 mg daily on saturday. no evidence for any recent klonopin script; do not prescribe. add thorazine PRN anger. T/C adding scheduled gabapentin over w/e if pt tolerates trileptal dose increase and continues to c/o anxiety. 06/27/2024: Add gabapentin 300 mg 3 times per day. Increase Thorazine as needed dosing to 100 mg for agitation/anger 06/28: Wanted to try zyprexa instead of Thorazine for agitation. Later wanted to change back to Thorazine (lowered to 75mg due to sedation at 100mg and report of no benefit at 50mg). 06/29: increase zoloft to 50 mg daily for anxiety. D/C wellbutrin as possibly exacerbating irritability/anxiety and as not helpful for anxiety. anxiety worst in the morning, schedule thorazine 100 at that time per pt request. planning to DC . 06/30: c/o anxiety. asking for gabapentin dose increase. discuss staff concern for sedation, pt aware dosing will be reduced if sedation presents as a persistent issue. planning for discharge, investigating options. back-up plan to D/C to grandmother's house. Reason for continued inpatient stay Substantial Risk for: rapid decompensation Time Spent With Patient Time: Total time managing care of this patient today __25__ minutes.
[2024-06-30] MEDS: Sulfamethox/Trimeth 800/160 TABLET 1 TAB PO ×2 (13:38→21:22)
[2024-06-30] MEDS: Gabapentin 300 MG CAPSULE 600 MG PO ×2 (15:23→21:22)
[2024-06-30 20:00] VITALS: BP 90/53; PULSE 67; RESP 16; TEMP 36.6; O2SAT 96
[2024-06-30 21:21] VITALS: BP 99/57; PULSE 68
[2024-07-01] MEDS: methADONE HCl 20 MG/2 ML ORAL.CONC 75 MG PO (08:12)
[2024-07-01 08:16] VITALS: BP 115/59; PULSE 88; RESP 16; TEMP 36.6; O2SAT 94
[2024-07-01] MEDS: Sulfamethox/Trimeth 800/160 TABLET 1 TAB PO ×2 (08:29→21:42)
[2024-07-01] MEDS: chlorproMAZINE HCl 100 MG TABLET PO (08:29)
[2024-07-01] MEDS: Gabapentin 300 MG CAPSULE 600 MG PO (08:29)
[2024-07-01] MEDS: Sertraline HCL 50 MG TABLET PO (08:29)
[2024-07-01] MEDS: Docusate Sodium 100 MG CAPSULE PO ×2 (08:29→21:42)
[2024-07-01] MEDS: OXcarbazepine 300 MG TABLET PO ×3 (08:29→21:42)
[2024-07-01] MEDS: Acetaminophen 325 MG TABLET 650 MG PO (08:30)
[2024-07-01] MEDS: Ibuprofen 600 MG TABLET PO ×4 (08:30→21:41)
[2024-07-01] MEDS: Doxycycline Monohydrate 100 MG CAPSULE PO (08:30)
[2024-07-01] MEDS: ALPRAZolam 0.5 MG TABLET 1 MG PO (11:18)
[2024-07-01] MEDS: chlorproMAZINE HCl 25 MG TABLET 75 MG PO (12:56)
[2024-07-01] MEDS: Milk of Magnesia 30 ML ORAL.SUSP PO (13:06)
--- NOTE | 2024-07-01 13:30 | P.PNPSI_ITS ---
Subjective Subjective Date of Service: 07/01/24 Reason For Visit: SI Interim History: informed of staff perception of sedation, informed gabapentin will be decreased back to 300 TID. still planning to discharge tomorrow, likely to her grandmother's home. no other complaints or requests. not attending groups. on bactrim, wound I&Ded. lots of PRNs. extremely sedated. Mental Status Exam Mental Status Exam Narrative: adequately dressed and groomed. cooperative. no PMA/PMR. speech nml rate, amount, loudness, tone, latency. thoughts linear and logical without delusions or paranoia. mood Anxious. affect constricted, normo-intense, non-labile. no SI/HI/AVH expressed. Diagnostics Vital Signs (24Hr): Vital Signs - 24 hr 06/30/24 20:00 06/30/24 21:21 07/01/24 08:16 Temperature 97.8 F 97.8 F Pulse Rate 67 68 88 Respiratory Rate 16 16 Blood Pressure 90/53 L 99/57 L 115/59 L Pulse Oximetry 96 94 Oxygen Delivery Method Room Air Room Air BMI result Body Mass Index 29.2 Labs 06/23/24 13:20 06/23/24 13:20 Medications Medications Current Medications Acetaminophen (Acetaminophen 325 Mg Tablet) 975 mg PO QID PRN PRN Reason: Headache/Pain Mild Scale (1-3) Al Hydroxide/Mg Hydroxide (Magnesium Hydrox/Alum Hydrox 30 Ml Oral.Susp) 30 ml PO Q6H PRN PRN Reason: Heartburn/Nausea Alprazolam (Alprazolam 0.5 Mg Tablet) 1 mg PO BID PRN PRN Reason: panic attack Last Admin: 07/01/24 11:18 Dose: 1 mg Chlorpromazine HCl (Chlorpromazine Hcl 100 Mg Tablet) 100 mg PO DAILY [facility] Last Admin: 07/01/24 08:29 Dose: 100 mg Chlorpromazine HCl (Chlorpromazine Hcl 25 Mg Tablet) 75 mg PO Q4H PRN PRN Reason: severe agitation Last Admin: 07/01/24 12:56 Dose: 75 mg Clonidine HCl (Clonidine Hcl 0.1 Mg Tablet) 0.1 mg PO TID PRN; Protocol PRN Reason: Anxiety Last Admin: 06/29/24 11:34 Dose: 0.1 mg Docusate Sodium (Docusate Sodium 100 Mg Capsule) 100 mg PO BID [facility] Last Admin: 07/01/24 08:29 Dose: 100 mg Doxycycline Monohydrate (Doxycycline Monohydrate 100 Mg Capsule) 100 mg PO Q12H [facility] Stop: 07/01/24 20:59 Last Admin: 07/01/24 08:30 Dose: 100 mg Gabapentin (Gabapentin 300 Mg Capsule) 300 mg PO TID [facility] Hydroxyzine HCl (Hydroxyzine Hcl 25 Mg Tablet) 25 mg PO Q6H PRN PRN Reason: Anxiety Last Admin: 06/29/24 12:45 Dose: 25 mg Ibuprofen (Ibuprofen 600 Mg Tablet) 600 mg PO QID [facility] Last Admin: 07/01/24 12:48 Dose: 600 mg Magnesium Hydroxide (Milk Of Magnesia 30 Ml Oral.Susp) 30 ml PO DAILY PRN PRN Reason: Constipation Last Admin: 07/01/24 13:06 Dose: 30 ml Methadone HCl (Methadone Hcl 20 Mg/2 Ml Oral.Conc) 75 mg PO DAILY [facility] Last Admin: 07/01/24 08:12 Dose: 75 mg Nicotine Polacrilex (Nicotine Polacrilex 2 Mg Gum) 4 mg BUCCAL Q3H PRN PRN Reason: Nicotine Cravings Last Admin: 06/29/24 20:59 Dose: 4 mg Oxcarbazepine (Oxcarbazepine 300 Mg Tablet) 300 mg PO TID [facility] Last Admin: 07/01/24 08:29 Dose: 300 mg Sertraline HCl (Sertraline Hcl 50 Mg Tablet) 50 mg PO DAILY [facility] Last Admin: 07/01/24 08:29 Dose: 50 mg Trazodone HCl (Trazodone Hcl 100 Mg Tablet) 100 mg PO BEDTIME [facility] Last Admin: 06/30/24 23:42 Dose: Not Given Trimethoprim/Sulfamethoxazole (Sulfamethox/Trimeth 800/160 Tablet) 1 tab PO Q12H [facility] Last Admin: 07/01/24 08:29 Dose: 1 tab Allergies Allergies Allergy/AdvReac Type Severity Reaction Status Date / Time No Known Allergies Allergy Verified 06/23/24 12:47 Assessment & Plan Assessment & Plan (1) Chest wall abscess: Status: Acute Code(s): L02.213 - Cutaneous abscess of chest wall Assessment and Plan: This will need incision and drainage. Unfortunately the procedure room does not have any such instrumentation. I will have to retrieve I&D care from ER and then return for I&D. Wound care includes 1 in packing with 4 x 4 q.day. Patient may shower prior to inserting new packing and may get wound wet and cleaned dried and then above- mentioned packing and dressing placed. (2) Unspecified mood [affective] disorder: Status: Acute Code(s): F39 - Unspecified mood [affective] disorder (3) Alcohol use disorder: Status: Acute Code(s): F10.90 - Alcohol use, unspecified, uncomplicated (4) Cocaine use disorder: Status: Acute Code(s): F14.10 - Cocaine abuse, uncomplicated (5) Opioid use disorder, severe, on maintenance therapy: Status: Acute Code(s): F11.20 - Opioid dependence, uncomplicated Plan 06/25: restart trileptal 150 TID mood mood stabilization. start zoloft 25 for anxiety/panic/depression. 06/26: c/o anxiety and irritability. agreeable to increase trileptal to 300 TID. increase zoloft to 50 mg daily on saturday. no evidence for any recent klonopin script; do not prescribe. add thorazine PRN anger. T/C adding scheduled gabapentin over w/e if pt tolerates trileptal dose increase and continues to c/o anxiety. 06/27/2024: Add gabapentin 300 mg 3 times per day. Increase Thorazine as needed dosing to 100 mg for agitation/anger 06/28: Wanted to try zyprexa instead of Thorazine for agitation. Later wanted to change back to Thorazine (lowered to 75mg due to sedation at 100mg and report of no benefit at 50mg). 06/29: increase zoloft to 50 mg daily for anxiety. D/C wellbutrin as possibly exacerbating irritability/anxiety and as not helpful for anxiety. anxiety worst in the morning, schedule thorazine 100 at that time per pt request. planning to DC . 06/30: c/o anxiety. asking for gabapentin dose increase. discuss staff concern for sedation, pt aware dosing will be reduced if sedation presents as a persistent issue. planning for discharge, investigating options. back-up plan to D/C to grandmother's house. 07/01: calm, cooperative. due to consistent staff reports of sedation, decrease gabapentin back to 300 TID. otherwise continue current mgmt. planning for discharge tomorrow. Reason for continued inpatient stay Substantial Risk for: stable for discharge Time Spent With Patient Time: Total time managing care of this patient today __25__ minutes.
[2024-07-01] MEDS: Gabapentin 300 MG CAPSULE PO ×2 (15:17→21:42)
[2024-07-01 20:00] VITALS: BP 90/61; PULSE 86; RESP 16; TEMP 37.2; O2SAT 99
[2024-07-01] MEDS: traZODone HCL 100 MG TABLET PO (21:42)
[2024-07-02 07:15] VITALS: BP 99/76; PULSE 80; RESP 16; TEMP 36.7; O2SAT 93
[2024-07-02] MEDS: methADONE HCl 20 MG/2 ML ORAL.CONC 75 MG PO (08:18)
[2024-07-02] MEDS: chlorproMAZINE HCl 100 MG TABLET PO (09:45)
[2024-07-02] MEDS: Sertraline HCL 50 MG TABLET PO (09:45)
[2024-07-02] MEDS: Docusate Sodium 100 MG CAPSULE PO (09:45)
[2024-07-02] MEDS: Gabapentin 300 MG CAPSULE PO (09:45)
[2024-07-02] MEDS: OXcarbazepine 300 MG TABLET PO (09:45)
[2024-07-02] MEDS: Ibuprofen 600 MG TABLET PO (09:46)
[2024-07-02] MEDS: Sulfamethox/Trimeth 800/160 TABLET 1 TAB PO (09:46)
[2024-07-02] MEDS: ALPRAZolam 0.5 MG TABLET 1 MG PO (10:14)
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
== END 2024-07-02 13:13 | disposition home or self-care (01) | DRG 753 ==
LOC: HO.ED 20:48 → HO.PADLT16 06-24 16:56
PROVIDERS: Physician Assistant Medical; Admitting Provider Psychiatry & Neurology Psychiatry; Emergency Provider Emergency Medicine; Visit Provider Psychiatry & Neurology Psychiatry
DX: F39 Unspecified mood [affective] disorder (principal); R45.851 Suicidal ideations; L02.213 Cutaneous abscess of chest wall; F10.90 Alcohol use, unspecified, uncomplicated; F11.20 Opioid dependence, uncomplicated; F14.10 Cocaine abuse, uncomplicated; F17.210 Nicotine dependence, cigarettes, uncomplicated; Z71.6 Tobacco abuse counseling; Z79.899 Other long term (current) drug therapy
CPT/HCPCS: 36415; 80048; 80076; 80307; 84702; 85025; 93005; 99285; S9485

== ENCOUNTER → 2024-06-24 09:48 | Outpatient (BNV) | payer OTHER, SELFPAY | PROVIDERS: Emergency Provider Emergency Medicine; Visit Provider Internal Medicine Cardiovascular Disease | DX: R00.1 Bradycardia, unspecified (principal) | CPT/HCPCS: 93010 ==

== ENCOUNTER → 2024-06-24 16:40 | Outpatient (BNV) | payer OTHER, SELFPAY | PROVIDERS: Admitting Provider Psychiatry & Neurology Psychiatry; Emergency Provider Emergency Medicine; Visit Provider Surgery | DX: L02.213 Cutaneous abscess of chest wall (principal) | CPT/HCPCS: 10060; 99222 ==

== ENCOUNTER → 2024-06-24 16:40 | Outpatient (BNV) | payer OTHER, SELFPAY | PROVIDERS: Admitting Provider Psychiatry & Neurology Psychiatry; Emergency Provider Emergency Medicine; Visit Provider Psychiatry & Neurology Psychiatry | DX: F39 Unspecified mood [affective] disorder (principal); F14.10 Cocaine abuse, uncomplicated; F10.90 Alcohol use, unspecified, uncomplicated; L02.213 Cutaneous abscess of chest wall; F11.20 Opioid dependence, uncomplicated | CPT/HCPCS: 90792; 99232; 99239 ==

== ENCOUNTER 2024-07-02 14:49 | Emergency (ER) | payer OTHER, SELFPAY ==
--- NOTE | 2024-07-02 15:03 | ED_ITS ---
HPI - Psych General Chief Complaint: Psychiatric Symptoms Stated Complaint: SI Time Seen by Provider: 07/02/24 15:56 Source: patient and old records reviewed Mode of arrival: ambulatory Limitations: no limitations History of Present Illness ED Provider: NANCY FARRIS Narrative: 38 yo female with PMH Of opiate use disorder, alcohol use disorder, cocaine abuse disorder, chest wall abscess just drained and packed 06/30 by surgery. She is on doxy and bactrim - she was unhappy with DC she said and left but was still on hospital grounds. She states she has SI and wants to . She was seen ingesting pills from a plastic bag. Her story has changed on the amount but from what we can tell she took 2 to 4 tabs of 100mg thorazine, gabapenting 300mg 4 caps, xanax 1mg 2 tabs. She states she feels fine. She has no other complaints. MD complaint: suicidal ideation and feels depressed Onset (ago): week(s) Duration: getting worse History of same: Yes Relieving factors: none Exacerbating factors: other Context: significant life stressor Associated psychiatric symptoms: depression Associated symptoms: denies other symptoms Treatments prior to arrival: none If self harm: admits thoughts of self harm, has plan and has acted on plan Related Data Home Medications ?Medication ?Instructions ?Recorded ?Confirmed alprazolam 1 mg tablet 1 mg PO BID 06/24/24 06/24/24 clonidine HCl 0.1 mg tablet 0.1 mg PO BID PRN Anxiety 06/24/24 06/24/24 docusate sodium 100 mg capsule 100 mg PO BID 06/24/24 06/24/24 methadone 10 mg/mL oral 75 mg PO DAILY 06/24/24 06/24/24 concentrate (Methadone Intensol) nicotine (polacrilex) 4 mg gum 4 mg PO Q3H PRN Nicotine Cravings 06/24/24 06/24/24 Previous Rx's ?Medication ?Instructions ?Recorded chlorpromazine 100 mg tablet 100 mg PO DAILY 30 days #30 tabs 07/02/24 chlorpromazine 25 mg tablet 75 mg (3 x 25 mg) PO Q4H PRN 07/02/24 severe agitation 30 days #180 tabs doxycycline hyclate 100 mg capsule 100 mg PO BID 9 days #18 caps 07/02/24 gabapentin 300 mg capsule 300 mg PO TID 30 days #90 caps 07/02/24 ibuprofen 600 mg tablet 600 mg PO TID PRN Breakthrough 07/02/24 Pain, Mild 30 days #90 tabs naloxone 4 mg/actuation nasal 4 mg intranasal Q2M PRN opioid 07/02/24 spray (Narcan) overdose 1 day #2 ea oxcarbazepine 300 mg tablet 300 mg PO TID 30 days #90 tabs 07/02/24 sertraline 50 mg tablet 50 mg PO DAILY 30 days #30 tabs 07/02/24 sulfamethoxazole 800 1 tab PO Q12H 9 days #18 tabs 07/02/24 mg-trimethoprim 160 mg tablet trazodone 100 mg tablet 100 mg PO BEDTIME 30 days #30 tabs 07/02/24 Allergies Allergy/AdvReac Type Severity Reaction Status Date / Time No Known Allergies Allergy Verified 07/02/24 15:07 Review of Systems 2 Review of Systems: Constitutional : No Fever, No Chills ENT/Mouth : No Ear Pain, No Nasal Congestion, No sore throat Eyes: No Eye Pain, No Swelling, No Redness Cardiovascular : No Chest Pain, No SOB Respiratory : No Cough, No Sputum, No Dyspnea Gastrointestinal : No Nausea, No Vomiting, No Diarrhea, No Hematochezia, No Melena Genitourinary : No Dysuria, No Urinary Frequency, No Hematuria Musculoskeletal : No Myalgias Skin : No Skin Lesions, No rash Neuro : No Weakness, No Numbness, No Paresthesias, No Dizziness, No Headache Psych : positive Anxiety, positive Depression, positive SI no HI All other systems reviewed and are negative PMFSH Past Medical History Attestation statement: The following information was validated with the patient. Source: old records reviewed Medical History (Updated 07/02/24 @ 18:14 by Traci Hall DO) Substance abuse Opioid use disorder, severe, on maintenance therapy Cocaine use disorder Alcohol use disorder Unspecified mood [affective] disorder Chest wall abscess Social History Social History Household Members: None Housing: Homeless Patient Tobacco Use Status: Current someday Tobacco user Tobacco use type: Smokeless Tobacco Smoked in Last 30 Days: Yes e-Cigarette/Vaping Use: Currently Using Second Hand Smoke Exposure: No Use of substances other than those prescribed or required for medical reasons: No Substance Use Type: Crack/Cocaine Advance Directives: No Advance Directives Information Provided: No Do you have a plan to hurt others: No Plan Patient : No service: No Sexual orientation: Straight/Heterosexual Physical Exam 2 Vital Signs: Vital Signs: Last Vital Signs Temp 97.8 F 07/02/24 20:00 Pulse 72 07/02/24 22:37 Resp 11 L 07/02/24 22:37 BP 93/52 L 07/02/24 22:37 Pulse Ox 97 07/02/24 22:37 O2 Del Method Nasal Cannula 07/02/24 22:37 O2 Flow Rate 2 07/02/24 22:37 BMI result Body Mass Index 31.1 Appearance: Alert. Oriented X3. No acute distress. Eyes: Pupils equal, round and reactive to light. ENT: Pharynx normal. Neck: Normal inspection. Neck supple. CVS: Normal heart rate and rhythm. Pulses normal. Chest: anterior chest wall packed but not draining abscess, no fluctuance, appears well. Respiratory: No respiratory distress. Breath sounds normal. Abdomen: Soft and non-tender. Skin: Skin warm and dry. Normal skin color. Extremities: No lower extremity edema. Neuro: Oriented X 3. No motor deficit. No sensory deficit. Course Course Course Narrative: This is a Rapid Medical Examination (RME) performed by Daniel Langston PA-C in triage. Full HPI, ROS, assessment and treatment plan per primary provider in the Main ED. 38 yo female with history of ETOH use disorder, cocaine use, opioid use disorder who presents to the ER after she was discharged from upstairs today for evaluation of ongoing SI. she reports she filled her meds at the hospital pharmacy and then came to the ER and took thorazine, gabapentin two pills of each. Plan: labs, CARE team Reevaluation(s) Reevaluation #1: Na 132 with fluid restriction and salt tab will repeat EKG once then she will be medically cleared Reevaluation #2: signed out to Aide pending repeat EKG 3am Medications Administered Generic Name Dose Route Start Last Admin Trade Name Freq PRN Reason Stop Dose Admin Cephalexin HCl 500 mg 07/02/24 17:00 07/02/24 20:58 Cephalexin 500 Mg Capsule PO 07/07/24 16:59 500 mg QID JULIO CÉSAR Administration Doxycycline Monohydrate 100 mg 07/02/24 21:00 07/02/24 20:58 Doxycycline Monohydrate 100 Mg Capsule PO 07/07/24 20:59 100 mg BID JULIO CÉSAR Administration Discontinued Medications Generic Name Dose Route Start Last Admin Trade Name Mike PRN Reason Stop Dose Admin Sodium Chloride 1 gm 07/02/24 18:14 07/02/24 19:37 Sodium Chloride Tab 1 Gm Tablet PO 07/02/24 18:15 1 gm ONCE ONE Administration Medical Decision Making Medical Decision Making MDM Narrative: 38 yo female with PMH Of opiate use disorder, alcohol use disorder, cocaine abuse disorder, chest wall abscess now here with SI and ingestion of pills will obtain labs, UA, EKG serial, will repack wound and restart on her antibiotics. Once medically cleared will refer to CARE team Differential Diagnosis Differential Diagnoses: The differential diagnosis associated with the presentation includes SI, overdose Admission/Observation Consideration of admission/observation: Escalation of care including admission/observation considered physician observation started at 432pm pending clearance and CARE team Consult Healthcare Provider Management of the patient was discussed with: Behavioral Health Provider Lab Data [facility] Lab Attestation statement: I reviewed the patient's lab results. Na low does not appear dry on exam will fluid restrict and give NaCl tab 07/02/24 17:09 07/03/24 00:32 Labs: Lab Results 07/02/24 07/02/24 07/03/24 Range/Units 15:56 17:09 00:32 WBC 6.1 (4.8-10.8) X10*3/uL RBC 3.97 L (4.20-5.50) X10*6/uL Hgb 11.5 L (12.0-16.0) g/dl Hct 32.4 L (37.0-47.0) % MCV 81.6 (80.0-98.0) fL MCH 29.0 (27.0-33.0) pg MCHC 35.5 H (31.0-35.0) g/dl RDW 11.9 (11.0-16.0) % Plt Count 310 (160-400) X10*3/uL MPV 9.5 (9.4-12.3) fL Immature Gran % (Auto) 0.3 (0.0-0.4) % Neut % (Auto) 52.9 (45-73) % Lymph % (Auto) 36.8 (20-40) % [place] % (Auto) 6.4 (2-11) % Eos % (Auto) 2.8 (0-4) % Baso % (Auto) 0.8 (0-2) % Lymph # (Auto) 2.3 (1.2-4.9) X10*3/uL [place] # (Auto) 0.4 (0.1-1.2) X10*3/uL Eos # (Auto) 0.2 (0.0-0.4) X10*3/uL Baso # (Auto) 0.1 (0.0-0.2) X10*3/uL Abs Immat Gran (auto) 0.02 (0.00-0.03) X10*3/uL Absolute Neuts (auto) 3.3 (2.0-8.3) x10*3/uL Absolute Nucleated RBC 0.000 (0.0-0.012) X10*3/uL Nucleated RBC % (auto) 0.0 (0.0-0.2) /100WBC Sodium 129 L 132 L (135-145) mmol/L Potassium 4.1 4.2 (3.3-5.1) mmol/L Chloride 99 101 (96-108) mmol/L Carbon Dioxide 26 23 (22-29) mmol/L Anion Gap 8 L 12 (12-20) BUN 12 14 (9-16) mg/dL Creatinine 0.78 0.76 (0.5-1.4) mg/dL Estim Creat Clear Calc 101.4 104.1 Estimated GFR > 60 > 60 Random Glucose 112 101 (60-115) mg/dL Calcium 8.4 D 8.6 (8.4-10.2) mg/dL Magnesium 1.7 (1.6-2.6) mg/dL Total Bilirubin 0.2 (0.0-1.0) mg/dL Direct Bilirubin < 0.2 (0.0-0.5) mg/dL AST 61 H (5-31) U/L ALT 83 H (0-31) U/L Alkaline Phosphatase 84 (39-117) U/L Total Protein 6.3 L (6.5-8.0) g/dL Albumin 3.5 (3.5-5.0) g/dL Urine Color Yellow Urine Appearance Cloudy Urine pH 6.5 (5.0-9.0) Ur Specific [place] 1.020 (1.005-1.025) Urine Protein Negative (Neg-Trace) mg/dL Urine Glucose (UA) Negative (Negative) mg/dL Urine Ketones Negative (Negative) mg/dL Urine Blood Negative (Negative) Urine Nitrite Negative (Negative) Ur Leukocyte Esterase Negative (Negative) Urine Opiates Screen Not Detected (Not Detect) Ur Buprenorphine Scrn Not Detected (Not Detect) ng/mL Ur Oxycodone Screen Not Detected (Not Detect) ng/mL Urine Methadone Screen Positive H (Not Detect) ng/mL Urine Fentanyl Screen Not Detected (Not Detect) Ur Barbiturates Screen Not Detected (Not Detect) Ur Phencyclidine Scrn Not Detected (Not Detect) Ur Amphetamines Screen Not Detected (Not Detect) U Benzodiazepines Scrn POSITIVE H (Not Detect) Urine Cocaine Screen Not Detected (Not Detect) U Marijuana (THC) Screen Not Detected (Not Detect) Ethyl Alcohol < 10 mg/dL Independent Interpretation I performed an independent interpretation of an: EKG Interpretation: Rate: 86 Rhythm: NSR [place]: normal Normal P waves. Normal ELAINE. Normal QRS complex. ST T wave : no RODRIGUE, inverted t waves V1 and V2 qTC:507 prior studies: qtc 507 The study has been interpreted contemporaneously by me. Rate: 74 Rhythm: NSR [place]: normal Normal P waves. Normal ELAINE. Normal QRS complex. ST T wave : no RODRIGUE, inverted t waves V1 and V2 qTC: 492 prior studies: no acute ischemia The study has been interpreted contemporaneously by me. Rate: 70 Rhythm: NSR [place]: normal Normal P waves. Normal ELAINE. Normal QRS complex. ST T wave : inverted t waves V1-V2, no RODRIGUE qTC: 507 prior studies: no acute ischemia The study has been interpreted contemporaneously by me. . External Record Review External record reviewed: Inpatient record Social Determinants Patient?s care significantly limited by Social Determinants of Health including: Inadequate housing and Problems related to primary support group Procedures Procedure Narrative Procedure Narrative: repacked abscess - tolerated well, iodoform gauze dressed with sterile dressing continue oral abx Discharge Plan Discharge Clinical Impression: Suicidal ideation, Acute hyponatremia Overdose Qualifiers: Encounter type: initial encounter Injury intent: intentional self-harm Q ualified Code(s): T50.902A - Poisoning by unspecified drugs, medicaments and biological substances, intentional self-harm, initial encounter Patient Disposition: Still a Patient Prescriptions: No Action clonidine HCl 0.1 mg tablet 0.1 mg PO BID PRN (Reason: Anxiety) docusate sodium 100 mg capsule 100 mg PO BID alprazolam 1 mg tablet 1 mg PO BID nicotine (polacrilex) 4 mg gum 4 mg PO Q3H PRN (Reason: Nicotine Cravings) methadone [Methadone Intensol] 10 mg/mL Concentrate 75 mg PO DAILY sulfamethoxazole-trimethoprim 800-160 mg Tablet 1 tab PO Q12H 9 Days Qty: 18 0RF chlorpromazine 100 mg Tablet 100 mg PO DAILY 30 Days Qty: 30 0RF oxcarbazepine 300 mg Tablet 300 mg PO TID 30 Days Qty: 90 0RF trazodone 100 mg Tablet 100 mg PO BEDTIME 30 Days Qty: 30 0RF chlorpromazine 25 mg Tablet 75 mg PO Q4H PRN (Reason: severe agitation) 30 Days Qty: 180 0RF gabapentin 300 mg Capsule 300 mg PO TID 30 Days Qty: 90 0RF sertraline 50 mg Tablet 50 mg PO DAILY 30 Days Qty: 30 0RF doxycycline hyclate 100 mg capsule 100 mg PO BID 9 Days Qty: 18 0RF ibuprofen 600 mg Tablet 600 mg PO TID PRN (Reason: Breakthrough Pain, Mild) 30 Days Qty: 90 0RF naloxone [Narcan] 4 mg/actuation spray,non-aerosol 4 mg intranasal Q2M PRN (Reason: opioid overdose) 1 Days Qty: 2 0RF Rx Instructions: spray 1 dose into ONE nostril; alternate nostrils w each dose until help arrives Interventions: Morrill-Suicide Risk Severity Scale Last Done: 07/02/24 16:37 Print Language: Spanish
[2024-07-02 15:04] VITALS: BP 113/77; PULSE 115; RESP 20; TEMP 36.6; O2SAT 96; BMI 31.1
[2024-07-02 16:00] VITALS: BP 101/58; PULSE 90; RESP 20; TEMP 36.9; O2SAT 93
--- NOTE | 2024-07-02 16:09 | PC.NURSE ---
Pt arrives to ED BH Pod from waiting area. Pt was D/C'd from hospital today and returned to ED after leaving the campus for a short time. government sales manager completed with security and security stows Pt belongings in linen closet d/t large amount of items. Dr. Hall comes to pod to eval Pt. Pt endorses taking multiple different medications (Xanax, Thorazine.) Per Dr. Hall, Pt will be re-assigned to main ED at this time for monitoring purposes given reported medication ingestion. Pt escorted to ED 8 by security.
--- NOTE | 2024-07-02 16:12 | ECG_ITS ---
Test Reason : OVERDOSE Blood Pressure : / mmHG Vent. Rate : 086 BPM Atrial Rate : 086 BPM P-R Int : 178 ms QRS Dur : 090 ms QT Int : 424 ms P-R-T Axes : 054 079 052 degrees QTc Int : 507 ms Normal sinus rhythm Prolonged QT Abnormal ECG When compared with ECG of 24-JUN-2024 10:21, Vent. rate has increased BY 34 BPM QT has lengthened Referred By: Traci Hall Electronically Signed By:HERNESTO ARZATE
[2024-07-02 16:14] LABS: Appearance Urine Cloudy; Color Urine Yellow; Glucose Urine UA Negative (Negative); Leukocyte Esterase Urine Negative (Negative); Nitrite Urine Negative (Negative); PH 6.5 (5.0-9.0); Urine Blood Negative (Negative); Urine Ketones Negative (Negative); Urine Protein Negative (Neg-Trace)
[2024-07-02 16:25] LABS: Amphetamine Screen Urine Not Detected (Not Detect); Barbiturates, Urine Not Detected (Not Detect); Benzodiazepines Screen Urine POSITIVE (Not Detect); Buprenorphine Scr Not Detected (Not Detect); Cannabinoid Screen Urine Not Detected (Not Detect); Cocaine Screen Urine Not Detected (Not Detect); Fentanyl, urine Not Detected (Not Detect); Methadone Screen, Urine Positive (Not Detect); Opiate Screen Urine Not Detected (Not Detect); Oxycodone Screen Urine Not Detected (Not Detect); Phencyclidine Screen Urine Not Detected (Not Detect)
[2024-07-02] MEDS: cephALEXin 500 MG CAPSULE PO ×2 (17:04→20:58)
[2024-07-02 17:12] LABS: MANUAL DIFF FLAG NO
[2024-07-02 17:24] LABS: Basophils Absolute Auto 0.1 X10*3/uL (0.0-0.2); Basophils Percent Auto 0.8 % (0-2); Eosinophils Absolute Auto 0.2 X10*3/uL (0.0-0.4); Eosinophils Percent Auto 2.8 % (0-4); Hematocrit 32.4 % (37.0-47.0); Hemoglobin 11.5 g/dl (12.0-16.0); Imm Gran Abs Auto 0.02 X10*3/uL (0.00-0.03); Imm Gran Pct Auto 0.3 % (0.0-0.4); Lymphocytes Absolute Auto 2.3 X10*3/uL (1.2-4.9); Lymphocytes Percent Auto 36.8 % (20-40); Mean Corpuscular HGB Conc 35.5 g/dl (31.0-35.0); Mean Corpuscular Volume 81.6 fL (80.0-98.0); Mean Platelet Volume 9.5 fL (9.4-12.3); Monocytes Absolute Auto 0.4 X10*3/uL (0.1-1.2); Monocytes Percent Auto 6.4 % (2-11); Neutrophils Absolute Auto 3.3 x10*3/uL (2.0-8.3); Neutrophils Percent Auto 52.9 % (45-73); Platelet Count 310 X10*3/uL (160-400); Red Blood Count 3.97 X10*6/uL (4.20-5.50); Red Cell Distribution Width 11.9 % (11.0-16.0); White Blood Count 6.1 X10*3/uL (4.8-10.8)
[2024-07-02 17:38] LABS: Alanine Aminotransferase 83 U/L (0-31); Albumin Level 3.5 g/dL (3.5-5.0); Alkaline Phosphatase 84 U/L (39-117); Anion Gap 8 (12-20); Aspartate Amino Transferase 61 U/L (5-31); Bilirubin Direct < 0.2 mg/dL (0.0-0.5); Bilirubin Total 0.2 mg/dL (0.0-1.0); Blood Urea Nitrogen 12 mg/dL (9-16); Calcium 8.4 mg/dL (8.4-10.2); Carbon Dioxide 26 mmol/L (22-29); Chloride 99 mmol/L (96-108); Creatinine Clr Calc Pharmacy 101.4; Estimated Glomerular Filt Rate > 60; Ethanol < 10 mg/dL; Glucose Random 112 mg/dL (60-115); Magnesium 1.7 mg/dL (1.6-2.6); Potassium 4.1 mmol/L (3.3-5.1); Sodium 129 mmol/L (135-145); Total Protein 6.3 g/dL (6.5-8.0)
[2024-07-02 18:00] VITALS: BP 92/55; PULSE 76; RESP 19; TEMP 36.3; O2SAT 94
--- NOTE | 2024-07-02 18:28 | PC.NURSE ---
Pt presents from home, reports feelings of SI. Reported her plan was to OD on heroin on the street, came here and it was reported to this RN that she took unknown quantity of her pills (gabapentin, thorazine, etc. unsure what pt took) in triage. Pt denies HI, drug or alcohol use today. Is calm and cooperative. Alert and oriented but somnolent and sleeping (easily aroused). Breathing even and unlabored. Noted to desat to 89% on RA while sleeping, placed on 2L O2 NC and maintains sats. NSR on bedside monitor. 1:1 sitter
--- NOTE | 2024-07-02 18:30 | ECG_ITS ---
Test Reason : OVERDOSE Blood Pressure : / mmHG Vent. Rate : 074 BPM Atrial Rate : 074 BPM P-R Int : 202 ms QRS Dur : 090 ms QT Int : 444 ms P-R-T Axes : 047 066 050 degrees QTc Int : 492 ms Normal sinus rhythm Possible Left atrial enlargement Prolonged QT Abnormal ECG When compared with ECG of 02-JUL-2024 16:27, No significant change was found Referred By: Traci Hall Electronically Signed By:HERNESTO ARZATE
[2024-07-02 19:34] VITALS: BP 95/61; PULSE 71; RESP 21; O2SAT 97
[2024-07-02] MEDS: Sodium Chloride Tab 1 GM TABLET PO (19:37)
[2024-07-02 20:00] VITALS: BP 105/54; PULSE 93; RESP 14; TEMP 36.6; O2SAT 96
[2024-07-02] MEDS: Doxycycline Monohydrate 100 MG CAPSULE PO (20:58)
--- NOTE | 2024-07-02 21:41 | MHC.CARE ---
Per Dr. Hall, Pt will not be medically clear until the morning of 07/03/24. Prior to knowing this information, T/W attempted to engage Pt in a LOC assessment. Pt was sedated and T/W had to shake Pt's arm multiple times throughout the assessment. Pt reports that after discharging from [facility] psychiatric unit she went to the main entrance waiting room. She expresses that she did not feel ready to D/C from the unit as she felt she was still struggling with SI and was concerned/feeling hopeless about her after care plan. She reports that she told staff that she would just figure it out and would represent to the ED. While in the waiting room, Pt reports that she took 2 tabs of Thorazine and 3 tabs of Xanax. She expresses, I wanted to kill myself. When Pt presented to the ED and was in triage, Pt took more pills ?but not as many as earlier.? Per ED providers documentation, it is suspected that Pt took 2-4 tabs of 100mg Thorazine, Gabapentin 300mg 4 caps, Xanax 1mg 2 tabs in total. Pt?s tox was positive for Benzodiazepines and Methadone. Pt reports that she was prescribed new medications while on the unit and found them helpful prior to discharge. She reports she is feeling safe and a ?bit better? now that she is in the ED. Pt reports that she is from [place], [place] where her boyfriend also resides. Pt is open to CSS level of care if this is a possibility from the ED.
[2024-07-02 22:37] VITALS: BP 93/52; PULSE 72; RESP 11; O2SAT 97
[2024-07-03] VITALS (7 sets, daily range): BP systolic 87–112; BP diastolic 44–71; PULSE 67–77; RESP 13–18; TEMP 36.4–36.7; O2SAT 94–97
[2024-07-03 00:50] LABS: Anion Gap 12 (12-20); Blood Urea Nitrogen 14 mg/dL (9-16); Calcium 8.6 mg/dL (8.4-10.2); Carbon Dioxide 23 mmol/L (22-29); Chloride 101 mmol/L (96-108); Creatinine Clr Calc Pharmacy 104.1; Estimated Glomerular Filt Rate > 60; Glucose Random 101 mg/dL (60-115); Potassium 4.2 mmol/L (3.3-5.1); Sodium 132 mmol/L (135-145)
--- NOTE | 2024-07-03 00:50 | ECG_ITS ---
Test Reason : overdose Blood Pressure : / mmHG Vent. Rate : 070 BPM Atrial Rate : 070 BPM P-R Int : 174 ms QRS Dur : 088 ms QT Int : 470 ms P-R-T Axes : -17 144 138 degrees QTc Int : 507 ms Normal sinus rhythm Left posterior fascicular block Cannot rule out Inferior infarct , age undetermined Abnormal ECG When compared with ECG of 02-JUL-2024 18:08, Nonspecific T wave abnormality now evident in Inferior leads Referred By: Traci Hall Electronically Signed By:HERNESTO ARZATE
--- NOTE | 2024-07-03 03:00 | ECG_ITS ---
Test Reason : qtc check Blood Pressure : / mmHG Vent. Rate : 077 BPM Atrial Rate : 077 BPM P-R Int : 198 ms QRS Dur : 088 ms QT Int : 466 ms P-R-T Axes : 059 073 067 degrees QTc Int : 527 ms Normal sinus rhythm Prolonged QT Abnormal ECG When compared with ECG of 03-JUL-2024 00:56, Nonspecific T wave abnormality no longer evident in Inferior leads Referred By: Traci Hall Electronically Signed By:HERNESTO ARZATE
--- NOTE | 2024-07-03 05:00 | ECG_ITS ---
Test Reason : prolonged QT Blood Pressure : / mmHG Vent. Rate : 070 BPM Atrial Rate : 070 BPM P-R Int : 202 ms QRS Dur : 090 ms QT Int : 470 ms P-R-T Axes : 047 072 048 degrees QTc Int : 507 ms Normal sinus rhythm Prolonged QT Abnormal ECG When compared with ECG of 03-JUL-2024 03:04, No significant change was found Referred By: Traci Hall Electronically Signed By:HERNESTO ARZATE
--- NOTE | 2024-07-03 07:32 | ECG_ITS ---
Test Reason : OVERDOSE Blood Pressure : / mmHG Vent. Rate : 072 BPM Atrial Rate : 072 BPM P-R Int : 182 ms QRS Dur : 088 ms QT Int : 464 ms P-R-T Axes : -04 069 027 degrees QTc Int : 508 ms Normal sinus rhythm Prolonged QT Abnormal ECG No significant changes when compared with the previous EKG of same day Referred By: Mary Sanchez Electronically Signed By:HERNESTO ARZATE
[2024-07-03] MEDS: cephALEXin 500 MG CAPSULE PO ×2 (08:05→12:17)
[2024-07-03] MEDS: Doxycycline Monohydrate 100 MG CAPSULE PO (08:05)
--- NOTE | 2024-07-03 08:22 | PHA.MEDREC ---
Addendum entered by Chino Lai 07/03/24 08:46: reviewed Original Note: Pharmacy Consult ? Medication Reconciliation Pharmacy has completed the medication reconciliation. Patient was discharged 07/02/24. [facility].
--- NOTE | 2024-07-03 08:40 | PC.NURSE ---
Attempt to place IV in patient. very difficulty access. MD made aware. MD was going to attempt USG IV but patient refused and stated she would attempt to drink more fluids this morning to help with her BP. Will continue to monitor closely. Pt agreeable to IV if drinking fluids does not help.
--- NOTE | 2024-07-03 08:48 | HE.PHANOTE ---
Re Methadone [facility] was here and receiving methadone 75mg daily from 06/24 until 07/02 when they left and came back today. Last dose charted on 07/02/24.
[2024-07-03] MEDS: methADONE HCl 20 MG/2 ML ORAL.CONC 75 MG PO (09:38)
--- NOTE | 2024-07-03 10:00 | ECG_ITS ---
Test Reason : OD Blood Pressure : / mmHG Vent. Rate : 066 BPM Atrial Rate : 066 BPM P-R Int : 172 ms QRS Dur : 090 ms QT Int : 468 ms P-R-T Axes : 007 071 033 degrees QTc Int : 490 ms Normal sinus rhythm Prolonged QT Abnormal ECG No previous ECGs available Referred By: Mary Sanchez Electronically Signed By:HERNESTO ARZATE
[2024-07-03 10:45] LABS: UPreg QC Valid YES; Urine Pregnancy NEGATIVE (NEGATIVE)
--- NOTE | 2024-07-03 11:13 | MHC.CARE ---
Pt was accepted to [facility] by Nicole perera today. The ETA is 3:30pm and the accepting provider is Dr. Juanjo Wynn. No nurse to nurse is required by the accepting facility. The address is [address] [place] [address]. The RN and CARE Team have been notified of placement.
--- NOTE | 2024-07-03 12:00 | ECG_ITS ---
Test Reason : OD Blood Pressure : / mmHG Vent. Rate : 064 BPM Atrial Rate : 064 BPM P-R Int : 176 ms QRS Dur : 088 ms QT Int : 464 ms P-R-T Axes : 005 066 029 degrees QTc Int : 478 ms Normal sinus rhythm Normal ECG When compared to the previous EKG of same day, QT shortened Referred By: Mary Sanchez Electronically Signed By:HERNESTO ARZATE
[2024-07-03] MEDS: ALPRAZolam 0.5 MG TABLET 1 MG PO (12:17)
--- NOTE | 2024-07-03 14:11 | PC.NURSE ---
[facility] called to give a report admission law secretary stated none was needed. Notified pt was enroute to facitlity.
== END 2024-07-03 14:11 ==
PROVIDERS: Physician Assistant; Emergency Provider Emergency Medicine
DX: T50.992A Poisoning by other drugs, medicaments and biological substances, intentional self-harm, initial encounter (principal); Y92.481 Parking lot as the place of occurrence of the external cause; E87.1 Hypo-osmolality and hyponatremia; F32.A Depression, unspecified; F19.10 Other psychoactive substance abuse, uncomplicated; F11.20 Opioid dependence, uncomplicated; F17.200 Nicotine dependence, unspecified, uncomplicated; F41.9 Anxiety disorder, unspecified
CPT/HCPCS: 36415; 80048; 80076; 80307; 81003; 81025; 83735; 85025; 93005; 99285

== ENCOUNTER → 2024-07-02 16:12 | Outpatient (BNV) | payer OTHER, SELFPAY | PROVIDERS: Emergency Provider Emergency Medicine; Visit Provider Internal Medicine | DX: R45.851 Suicidal ideations (principal); R94.31 Abnormal electrocardiogram [ECG] [EKG]; F14.10 Cocaine abuse, uncomplicated | CPT/HCPCS: 93010 ==

== ENCOUNTER → 2024-07-03 00:50 | Outpatient (BNV) | payer OTHER, SELFPAY | PROVIDERS: Emergency Provider Emergency Medicine; Visit Provider Internal Medicine | DX: R94.31 Abnormal electrocardiogram [ECG] [EKG] (principal); R45.851 Suicidal ideations; T50.902A Poisoning by unspecified drugs, medicaments and biological substances, intentional self-harm, initial encounter | CPT/HCPCS: 93010 ==